=== PATIENT | female | born 1950 | race Hispanic/Latino ===

== ENCOUNTER 2023-09-24 14:44 | Inpatient (IN) | payer OTHER ==
--- OUTSIDE RECORDS SUMMARY | 2023-09-24 14:49 | XMS REPORT | Continuity of Care Document ---
Author Name Unknown Address [address] [facility] [address] [place] [address] [facility] thconnect Address [address] [facility] [address] [place] [address] Care Team Providers Care Schedule Planning Manager Name Role Phone REGAN RODRIGUEZ Primary Care Physician Unavailab Nayana Luna Attending Clinician Unavailable Christine Singh Attending Clinician Unavailable DR REGAN RODRIGUEZ Attending Clinician Unavailable [phone] Attending Clinician Unavailable Malinda Dee RN Attending Clinician UnavailLety Hagan PA-C Attending Clinician [phone] Doctor Unassigned, [place] Attending Clinician U Magalis Ayala RN Attending Clinician [phone] EARLINE FRANK Attending Clinician Unavailable Lexx Patrick MD Attending Clinician [phone] Earline Frank MD Attending Clinician [phone] Sparkle Coleman MD Attending Clinician [phone] Johnathan Martínez MD Attending Clinician [phone] Mitchel_A_AH Attending Clinician Unavailable DR REGAN RODRIGUEZ Admitting Clinician Unavailable SPARKLE COLEMAN Admitting Clinician Unavailable Sparkle Coleman MD Admitting Clinician [phone] Mitchel_A_SHAARD Admitting Clinician Unavailable Payers Payer Name Policy Type Policy Number Effective Date Expirati on Date Source [employer] MANAGED MEDICARE - OP [id number] [employer] [place] (MEDICARE REPLACEMENT/ADVANT AGE - HMO) [id number] 2019 00:00:00 Problems Condition Name Condition Details Condition Category Status Onset Date Resolution Date Last Treatment Date Treating Clinician Comments Source At risk for stroke At risk for stroke Disease Active 10-02 00:00: 00 [facility] AMS (altered mental status) AMS (altered mental status) Disease Active 10-02 00:00: 00 [facility] Aphasia Aphasia Disease Active 10-02 00:00: 00 [facility] Acute ischemic left middle cerebral artery (MCA) stroke Acute ischemic left middle cerebral artery (MCA) stroke Disease Active 10-02 00:00: 00 Overview: Formattin g of this note might be different from the original. 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 Disease Active 11-18 00:00: 00 [facility] Internal carotid artery stenosis, bilateral Internal carotid artery stenosis, bilateral Disease Active 11-18 00:00: 00 [facility] 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 Disease Active 11-18 00:00: 00 [facility] Acute ischemic right MCA stroke Acute ischemic right MCA stroke Disease Active 11-15 00:00: 00 [facility] Fatigue, unspecifie d type Fatigue, unspecifie d type Problem Active [facility] Acquired hypothyroi dism Acquired hypothyroi dism Problem Active [facility] Abnormal thyroid function test Abnormal thyroid function test Problem Active [facility] Frequent falls Frequent falls Problem Active [facility] Hemiparesi s of right dominant side, unspecifie d hemiparesi s etiology Hemiparesi s of right dominant side, unspecifie d hemiparesi s etiology Problem Active [facility] Right hip pain Right hip pain Problem Active [facility] Type 2 diabetes mellitus with hyperglyce alexsandra Type 2 diabetes mellitus with hyperglyce alexsandra Problem Active [facility] Seizures Seizures Problem Active [facility] 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 of 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 Problem Active [facility] Abdominal pain Abdominal pain Problem Active [facility] Insomnia Insomnia Problem Active [facility] Depression , unspecifie d depression type Depression , unspecifie d depression type Problem Active [facility] Essential hypertensi on Essential hypertensi on Problem Active [facility] Asthma, unspecifie d asthma severity, unspecifie d whether complicate d, unspecifie d whether persistent Asthma, unspecifie d asthma severity, unspecifie d whether complicate d, unspecifie d whether persistent Problem Active [facility] History of CVA (cerebrova scular accident) History of CVA (cerebrova scular accident) Problem Active [facility] Hyperlipid emia, unspecifie d hyperlipid emia type Hyperlipid emia, unspecifie d hyperlipid emia type Problem Active [facility] Microalbum inuria Microalbum inuria Problem Active [facility] Atheroscle rosis of right carotid artery Atheroscle rosis of right carotid artery Problem Active [facility] Hemiparesi s affecting left side as late effect of cerebrovas cular accident Hemiparesi s affecting left side as late effect of cerebrovas cular accident Problem Active [facility] Stress Stress Problem Active [facility] Dysphagia, unspecifie d type Dysphagia, unspecifie d type Problem Active [facility] Low back pain Low back pain Problem Active [facility] Left hip pain Left hip pain Problem Active [facility] Spasmodic cough Spasmodic cough Problem Active [facility] Status post fall Status post fall Problem Active [facility] Other chronic pain Other chronic pain Problem Active [facility] Hypoalbumi nemia Hypoalbumi nemia Problem Active [facility] Dizziness Dizziness Problem Active [facility] Allergies, Adverse Reactions, Alerts Allergy Name Allergy Type Status Severity Reaction(s) Onset Date Inactive Date Treating Clinician Comments Source NO KNOWN ALLERGIE S Drug Class Active [facility] Aspirin Adverse Reaction Active Info Not Available [facility] Social History Social Habit Start Date Stop Date Quantity Comments Source Exposure to SARS-CoV-2 (event) Not sure [facility] Sex Assigned At 1950 00:00:00 1950 00:00:00 [facility] Smoking Status Start Date Stop Date Source Unknown if ever smoked [facility] Medications Ordered Medication Name Filled Medication Name Start Date Stop Date Current Medication? Ordering Clinician Indication Dosage Frequency Signature (SIG) Comments Components Source ergocalcife rol, vitamin d2, 1,250 mcg (50,000 unit) capsule 10-11 00:00: 00 Yes [id number] Take 1 capsule by mouth weekly. [facility] polyethylen e glycol 3350 powder 17 g 10-06 01:00: 00 Yes 17g 17 g, Oral, BID, First dose on Thu10/05/20 at 2000, Until Discontinu ed, Routine [facility] metFORMIN 500 mg tablet 10-05 22:02: 23 Yes 500mg Take 500 mg by mouth 2 (two) times daily with meals. [facility] FLUoxetine 20 mg capsule 10-05 22:02: 23 Yes 20mg Take 20 mg by mouth daily. [facility] fluticasone -salmeterol (ADVAIR DISKUS) 250-50 mcg/dose inhalation disk 10-05 22:02: 23 Yes 1{puff} Inhale 1 Puff daily. [facility] ity [facility] ALBUTEROL INHALE 10-05 19:46: 41 10-05 00:00 :00 No Inhale. [facility] ity [facility] midodrine (PROAMATINE ) tablet 2.5 mg 10-05 19:00: 00 10-22 18:59 :00 No 2.5mg 2.5 mg, Oral, Q8H, 51 doses, First dose (after last modificati on) on Thu10/05/20 at 1400, Last dose on Thu10/22/20 at 0600, Routine [facility] metFORMIN 500 mg tablet 10-05 17:02: 23 Yes 500mg Take 500 mg by mouth 2 (two) times daily with meals. [facility] FLUoxetine 20 mg capsule 10-05 17:02: 23 Yes 20mg Take 20 mg by mouth daily. [facility] fluticasone -salmeterol (ADVAIR DISKUS) 250-50 mcg/dose inhalation disk 10-05 17:02: 23 Yes 1{puff} Inhale 1 Puff daily. [facility] lactated ringers IV infusion 1,000 mL 10-05 14:15: 00 Yes 1000mL at 75 mL/hr, 1,000 mL, IV Infusion, CONTINUOUS , Starting Thu10/05/20 at 0915, Until Discontinu ed, Routine [facility] famotidine (PEPCID AC) tablet 20 mg 10-05 14:00: 00 Yes 20mg 20 mg, Oral, BID, First dose on Thu10/05/20 at 0900, Until Discontinu ed, Routine [facility] sennosides (SENOKOT) tablet 8.6 mg 10-05 14:00: 00 Yes 8.6mg 8.6 mg, Oral, DAILY, First dose on Thu10/05/20 at 0900, Until Discontinu ed, Routine [facility] insulin detemir U-100 (LEVEMIR U-100 INSULIN) injection 15 Units 10-05 01:00: 00 Yes 15U 15 Units, Subcutaneo us, BID, First dose (after last modificati on) on Thu10/04/20 at 2000, Until Discontinu ed, Routine
Restricte d - To be dispensed only to: Continuati on from home [facility] insulin detemir U-100 100 unit/mL injection 10-05 00:00: 00 Yes [id number] 15U inject 15 Units under the skin 2 (two) times daily. [facility] prasugreL 10 mg tablet 10-05 00:00: 00 10-05 00:00 :00 No [id number] 10mg Take 1 tablet by mouth daily. [facility] Sliding Scale Insulin - Lispro (HumaLOG) + Fsbg Testing 10-04 22:00: 00 Yes Subcutaneo us, TID MEALS+HS, First dose on Thu10/04/20 at 1700, Until Discontinu ed, Routine [facility] psyllium (METAMUCIL FIBER SINGLES) 3.4 gram packet 1 Packet 10-04 18:15: 00 Yes 1{packe t} 1 Packet, Oral, DAILY, First dose on Thu10/04/20 at 1315, Until Discontinu ed, Routine [facility] sennosides- docusate sodium (SENOKOT-S) 8.6-50 mg per tablet 1 tablet 10-04 18:15: 00 10-05 13:47 :58 No 1{tbl} 1 tablet, Oral, DAILY, First dose on Thu10/04/20 at 1315, Until Discontinu ed, Routine [facility] ergocalcife [facility]l (vitamin d2) (CALCIFEROL ) capsule 50,000 Units 10-04 14:00: 00 Yes [id number] 50,000 Units, Oral, QWEEKLY, First dose on Thu10/04/20 at 0900, Until Discontinu ed, Routine [facility] heparin (porcine) injection 5,000 Units 10-04 13:00: 00 Yes 5000U 5,000 Units, Subcutaneo us, Q12H, First dose on Thu10/04/20 at 0800, Until Discontinu ed, Routine [facility] midodrine (PROAMATINE ) tablet 2.5 mg 10-04 11:45: 00 10-05 13:03 :59 No 2.5mg 2.5 mg, Oral, Q6H, 56 doses, First dose on Thu10/04/20 at 0645, Last dose on Thu10/18/20 at 0000, Routine [facility] QUEtiapine (SEROQUEL) tablet 25 mg 10-04 02:00: 00 Yes 25mg 25 mg, Oral, QHS, First dose on Thu10/03/20 at 2100, Until Discontinu ed, Routine [facility] levETIRAcet am (KEPPRA) tablet 750 mg 10-03 14:15: 00 Yes 750mg 750 mg, Oral, BID, First dose on Thu10/03/20 at 0915, Until Discontinu ed, Routine [facility] insulin detemir U-100 (LEVEMIR U-100 INSULIN) injection 12 Units 10-03 14:15: 00 10-04 19:24 :28 No 12U 12 Units, Subcutaneo us, BID, First dose (after last modificati on) on Thu10/03/20 at 0915, Until Discontinu ed, Routine
Restricte d - To be dispensed only to: Continuati on from home [facility] phenylephri ne 10 mg in NaCl 0.9% (NS) 250 mL infusion RTU 10-03 14:00: 37 10-04 11:36 :04 No .5ug/kg /min 0.5-6 mcg/kg/min ?56.4 kg (42.3-507. 6 mL/hr), IV Infusion, TITRATE, SBP goal 100-160, Starting Thu10/03/20 at 0900
In itiate infusion at 0.5 mcg/kg/min . &nb sp;Increas e by 0.1 mcg/kg/min every 30 seconds to 5 minutes as needed to reach and maintain goal blood pressure.& nbsp;&nbsp ;Maximum dose = 6 mcg/kg/min . &nb sp;If goal not maintained at maximum allowed dose, contact prescriber .
[facility] lidocaine (LIDODERM) 5 % (700 mg/patch) patch 1 Patch 10-03 14:00: 00 Yes 1{patch } 1 Patch, Topical, Administer over 12 Hours, DAILY, First dose on Thu10/03/20 at 0900, Until Discontinu ed, Routine [facility] aspirin chewable tablet 81 mg 10-03 14:00: 00 Yes 81mg 81 mg, Oral, DAILY, First dose on Thu10/03/20 at 0900, Until Discontinu ed, Routine [facility] levothyroxi ne (SYNTHROID) 25 mcg/ml oral suspension 50 mcg 10-03 11:00: 00 Yes 50ug 50 mcg, Oral, QAM-0600, First dose on Thu10/03/20 at 0600, Until Discontinu ed, Routine [facility] remdesivir 100 mg in NaCl 0.9% (NS) 250 mL infusion 10-03 05:00: 00 10-07 20:59 :00 No 100mg 100 mg, IV Infusion, DAILY AT 1600, 4 doses, First dose on Thu10/03/20 at 1600, Last dose on Thu10/06/20 at 1600, 250 mL
Gita ent informed [facility] for purposes of emergency use of remdesivir . No
Hi ordonez discuss and complete the [facility] Informat[facility] n Retention Consent form with the patient: I will discuss and complete the [facility] Retention Consent form with the patient [facility] levETIRAcet am (KEPPRA) 750 mg in NaCl 0.9% (NS) 100 mL IV infusion 10-03 03:15: 00 10-03 14:00 :16 No 750mg 750 mg, IV Infusion, Q12H, First dose on Thu10/02/20 at 2215, Until Discontinu ed, 100 mL [facility] insulin detemir U-100 (LEVEMIR U-100 INSULIN) injection 8 Units 10-03 01:00: 00 10-03 14:03 :11 No 8U 8 Units, Subcutaneo us, BID, First dose (after last modificati on) on Thu10/02/20 at 2000, Until Discontinu ed, Routine
Restricte d - To be dispensed only to: Continuati on from home [facility] dexamethaso ne (DECADRON PHOSPHATE) 6 mg in NaCl 0.9% (NS) 50 mL piggyback 10-02 23:15: 00 10-05 11:48 :33 No 6mg 6 mg, IV Piggyback, Q24H, 5 doses, First dose on Thu10/02/20 at 1815, Last dose on Thu10/06/20 at 1815, 50 mL [facility] cefTRIAXone (ROCEPHIN) 1,000 mg in NaCl 0.9% (NS) 50 mL MINI-BAG 10-02 21:34: 00 10-04 17:09 :35 No 1000mg 1,000 mg, IV Piggyback, Q24H ABX, First dose (after last modificati on) on Thu10/02/20 at 1645, Until Discontinu ed, 50 mL
Reas on for Anti-Infec tive: Documented Infection< br>Documen jun Infection Site: Urine
D uration of Therapy: Other (see Comments) [facility] sulfur hexafluorid e microsphr (LUMASON) injection 3 mL 10-02 21:00: 00 10-02 21:00 :00 No [id number] 3mL 3 mL, Intravenou s, ONCE, 1 dose, Thu10/02/20 at 1600, Routine
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 Restricted medication : JOHNNY MAE [facility] Saline Bubble Study 10-02 20:56: 29 Yes [id number] 6mL 6 mL, Injection, SEE-INSTRU CTIONS, 2 doses, Starting Thu10/02/20 at 1556, Until Discontinu ed, Routine [facility] FENTanyl PF (SUBLIMAZE (PF)) injection 6.25 mcg 10-02 20:11: 24 10-05 18:44 :58 No 6.25ug 6.25 mcg, Slow IV Push, Q6HPRN, Starting Thu10/02/20 at 1511, Until Thu10/05/20 at 1344, Routine, Pain (scale 7-10) [facility] magnesium sulfate in water 4 gram/50 mL (8 %) IV Piggyback 4 g 10-02 17:45: 00 10-02 17:04 :00 No 4g 4 g, IV Piggyback, ONCE, 1 dose, Thu10/02/20 at 1245, Routine [facility] phenylephri ne 10 mg in NaCl 0.9% (NS) 250 mL infusion RTU 10-02 17:39: 10 10-03 14:01 :40 No .5ug/kg /min 0.5-6 mcg/kg/min ?56.4 kg (42.3-507. 6 mL/hr), IV Infusion, TITRATE, SBP goal 130-180, Starting Thu10/02/20 at 1239
In itiate infusion at 0.5 mcg/kg/min . &nb sp;Increas e by 0.1 mcg/kg/min every 30 seconds to 5 minutes as needed to reach and maintain goal blood pressure.& nbsp;&nbsp ;Maximum dose = 6 mcg/kg/min . &nb sp;If goal not maintained at maximum allowed dose, contact prescriber .
[facility] acetaminoph en (TYLENOL) tablet 500 mg 10-02 17:00: 00 Yes 500mg 500 mg, Oral, Q6H, First dose (after last modificati on) on Thu10/02/20 at 1200, Until Discontinu ed, Routine [facility] Sliding Scale Insulin - Lispro (HumaLOG) + Fsbg Testing 10-02 17:00: 00 10-04 19:23 :52 No Subcutaneo us, TID MEALS+HS, First dose (after last modificati on) on Thu10/02/20 at 1200, Until Discontinu ed, Routine [facility] NaCl 0.9% (NS) bolus infusion 250 mL 10-02 17:00: 00 10-02 16:10 :00 No 250mL at 250 mL/hr, 250 mL, IV Piggyback, ONCE, 1 dose, Thu10/02/20 at 1200, STAT [facility] lidocaine (LIDODERM) 5 % (700 mg/patch) patch 1 Patch 10-02 16:00: 00 10-03 04:02 :00 No 1{patch } 1 Patch, Topical, Administer over 12 Hours, ONCE, 1 dose, Thu10/02/20 at 1100, Routine [facility] FENTanyl PF (SUBLIMAZE (PF)) injection 12.5 mcg 10-02 15:00: 00 10-02 13:50 :00 No 12.5ug 12.5 mcg, Slow IV Push, ONCE, 1 dose, Thu10/02/20 at 1000, Routine [facility] FLUoxetine (PROZAC) capsule 20 mg 10-02 14:00: 00 Yes 20mg 20 mg, Oral, DAILY, First dose on Thu10/02/20 at 0900, Until Discontinu ed, Routine [facility] alteplase (ACTIVASE) injection 5.08 mg 10-02 13:30: 00 10-02 12:52 :00 No .09mg/k g 5.08 mg (rounded from 5.076 mg = 0.09 mg/kg ?56.4 kg), Intravenou s, ONCE, 1 dose, Thu10/02/20 at 0830, STAT
ST ZEPEDA Activation : IN ED DO NOT Automatica lly send
Fa culty member approving Restricted medication : SPARKLE COLEMAN [facility] NaCl 0.9% (NS) 50 mL infusion 10-02 13:15: 00 10-02 13:52 :00 No .81mL/k g/h at 45.68 mL/hr, IV Infusion, ONCE, 1 dose, Thu10/02/20 at 0815, Routine
Saeed the 50 mL NS bag with end of the alteplase infusion tubing when alteplase vial is empty. Continue the infusion at the same rate.
[facility] NaCl 0.9% (NS) 1000 mL + KCL 20 mEq 10-02 12:45: 00 10-05 13:01 :14 No IV Infusion, at 75 mL/hr, CONTINUOUS , Starting Thu10/02/20 at 0745, Until Thu10/05/20 at 0801, Routine [facility] alteplase (ACTIVASE) injection 45.68 mg 10-02 12:30: 00 10-02 13:35 :00 No .81mg/k g 45.68 mg (rounded from 45.684 mg = 0.81 mg/kg ?56.4 kg), Intravenou s, ONCE, 1 dose, Thu10/02/20 at 0730, Routine
STROKE Activation : IN ED DO NOT Automatica lly send
Fa culty member approving Restricted medication : SPARKLE COLEMAN [facility] NaCl 0.9% (NS) injection 5 mL 10-02 12:17: 07 Yes 5mL 5 mL, Slow IV Push, PRN - SEE INSTRUCTIO NS, Starting Thu10/02/20 at 0717, Until Discontinu ed, 10 mL [facility] iopamidol (ISOVUE 370-500 mL) injection 100 mL 10-02 11:54: 00 10-02 11:55 :00 No [id number] 100mL 100 mL, Intravenou s, ONCE, 1 dose, Thu10/02/20 at 0715, Routine [facility] NaCl 0.9% (NS) injection 5 mL 10-02 11:11: 32 Yes 5mL 5 mL, Slow IV Push, PRN - SEE INSTRUCTIO NS, Starting Thu10/02/20 at 0611, Until Discontinu ed, 10 mL [facility] ipratropium (ATROVENT HFA) inhaler 2 Puff 10-02 05:00: 00 Yes 2{puff} 2 Puff, Inhalation , Q6H, First dose (after last modificati on) on Thu10/02/20 at 0000, Until Discontinu ed, Routine
Is this order for a patient with suspected or confirmed COVID-19 infection? Yes [facility] it[facility] albuterol (VENTOLIN) inhaler 2 Puff 10-02 05:00: 00 Yes 2{puff} 2 Puff, Inhalation , Q6H, First dose (after last modificati on) on Thu10/02/20 at 0000, Until Discontinu ed, Routine
Is this order for a patient with suspected or confirmed COVID-19 infection? Yes [facility] Sliding Scale Insulin - Lispro (HumaLOG) + Fsbg Testing 10-02 04:45: 00 10-02 15:51 :50 No Subcutaneo us, TID MEALS+HS, First dose on Thu10/01/20 at 2345, Until Discontinu ed, Routine [facility] atorvastati n (LIPITOR) tablet 40 mg 10-02 03:15: 00 Yes 40mg 40 mg, Oral, QPM, First dose (after last modificati on) on Thu10/01/20 at 2215, Until Discontinu ed, Routine [facility] levETIRAcet am (KEPPRA) tablet 750 mg 10-02 03:15: 00 10-03 03:05 :43 No 750mg 750 mg, Oral, BID, First dose (after last modificati on) on Thu10/01/20 at 2215, Until Discontinu ed, [facility]emir U-100 (LEVEMIR U-100 INSULIN) injection 12 Units 10-02 03:15: 00 10-02 14:06 :30 No 12U 12 Units, Subcutaneo us, BID, First dose (after last modificati on) on Thu10/01/20 at 2215, Until Discontinu ed, Routine
Restricte d - To be dispensed only to: Continuati on from home [facility] ipratropium (ATROVENT HFA) inhaler 2 Puff 10-02 01:23: 43 10-02 02:50 :20 No 2{puff} 2 Puff, Inhalation , Q6HPRN, Starting Thu10/01/20 at 2023, Until Thu10/01/20 at 2150, Routine, Shortness of Breath, Wheezing, Bronchospa sm, Chest tightness< br>Is this order for a patient with suspected or confirmed COVID-19 infection? Yes [facility] acetaminoph en (TYLENOL) tablet 650 mg 10-02 01:22: 47 10-02 13:50 :55 No 650mg 650 mg, Oral, Q6HPRN, Starting Thu10/01/20 at 2022, Until Thu10/02/20 at 0850, Routine, Pain (scale 1-3) [facility] cefTRIAXone (ROCEPHIN) 1,000 mg in NaCl 0.9% (NS) 50 mL MINI-BAG 10-01 22:30: 00 10-01 22:04 :00 No 1000mg 1,000 mg, IV Piggyback, ONCE, 1 dose, Thu10/01/20 at 1730, 50 mL
Reas on for Anti-Infec tive: Documented Infection< br>Documen jun Infection Site: Urine
D uration of Therapy: Other (see Comments) [facility] acetaminoph en (TYLENOL) tablet 975 mg 10-01 20:15: 00 10-01 19:39 :00 No 975mg 975 mg, Oral, ONCE, 1 dose, Thu10/01/20 at 1515, ELSIE [facility] Trulicity Trulicity 11-15 00:00: 00 03-15 00:00 :00 No Christine Millender as directed [facility] Magnesium Oxide Magnesium Oxide 09-11 00:00: 00 Yes Christine Millender 1 tablet as needed [facility] Glucose testing strips Glucose testing strips 310 00:00: 00 Yes Christine Millender as directed (dispense testing strips formulary to insurance) [facility] Lancets Lancets 08-15 00:00: 00 Yes Christine Millender as directed (dispense lancets formulary to insurance) [facility] Pen [place] Pen [place] 3 00:00: 00 Yes Christine Millender as directed [facility] Blood Glucose Monitor Blood Glucose Monitor 08-15 00:00: 00 Yes Christine Millender as directed (DISPENSE BLOOD GLUCOSE MONITOR FORMULARY TO INSURANCE) [facility] Nesina Nesina 02-02 00:00: 00 Yes Christine Millender 1 tablet [facility] ALPRAZolam 0.25 mg tablet 11-24 00:00: 00 Yes .25mg Take 1 tablet by mouth every 8 (eight) hours. [facility] levETIRAcet am 750 mg tablet 11-24 00:00: 00 Yes 750mg Take 1 tablet by mouth 2 (two) times daily. [facility] atorvastati n 40 mg tablet 11-24 00:00: 00 Yes 40mg Take 1 tablet by mouth every evening. [facility] QUEtiapine 25 mg tablet 11-24 00:00: 00 Yes 25mg Take 1 tablet by mouth 2 (two) times daily. [facility] insulin aspart RAPID 100 unit/mL injection 11-24 00:00: 00 Yes 8U inject 8 Units under the skin 3 (three) times daily with meals. [facility] aspirin 81 mg chewable tablet 11-24 00:00: 00 Yes 81mg Take 1 tablet by mouth daily. [facility] insulin detemir 100 unit/mL injection 11-24 00:00: 00 10-05 00:00 :00 No 12U inject 12 Units under the skin 2 (two) times daily. [facility] prasugrel 10 mg tablet 2017-0 6-19 00:00: 00 10-05 00:00 :00 No 10mg Take 1 tablet by mouth daily. [facility] acetaminoph en-codeine (TYLENOL #3) 300-30 mg tablet 2014- 2-18 00:00: 00 10-05 00:00 :00 No 2{tbl} Take 2 Tabs by mouth every 6 (six) hours as needed for Pain unrelieved by non-narcot ic analgesics . [facility] Atenolol Atenolol Yes Christine Millender 1 tablet [facility] Advair Diskus Advair Diskus Yes Christine Millender 1 puff [facility] Levemir FlexTouch Levemir FlexTouch Yes Christine Millender as directed [facility] Ventolin HFA Ventolin HFA Yes Christine Millender 2 puffs as needed for sob/wheezi ng [facility] Proventil HFA Proventil HFA Yes Christine Millender 2 puffs as needed [facility] Avivaia Janmya Yes Christine Millender 1 tablet for diabetes [facility] Atorvastati n Calcium Atorvastati n Calcium Yes Christine Millender 1 tablet in evening [facility] Plavix Plavix Yes Christine Millender 1 tablet [facility] GlyBURIDE GlyBURIDE Yes Christine Millender 1 tablet [facility] Levetiracet am Levetiracet am Yes Christine Millender 1 tablet [facility] Ketoconazol e Ketoconazol e Yes Christine Millender 1 applicatio n to affected area [facility] Metformin HCl Metformin HCl Yes Christine Millender 1 tablet with meals [facility] Fluoxetine HCl Fluoxetine HCl Yes Christine Millender 1 capsule in the morning [facility] Seroquel Seroquel Yes Christine Millender 1 tablet [facility] Janaldoia Janaldoia Yes Christine Millender 1 tablet for diabetes [facility] Levothyroxi ne Sodium Levothyroxi ne Sodium Yes Christine Millender 1 tablet on an empty stomach in the morning [facility] Vital Signs Vital Name Observation Time Observation Value Comments Elsa holm Systolic blood pressure 2020-10-05 20:52:00 156 mm[Hg] [facility] Diastolic blood pressure 2020-10-05 20:52:00 84 mm[Hg] [facility] Heart rate 2020-10-05 20:52:00 87 /min [facility] Body temperature 2020-10-05 20:52:00 35.33 Amber [facility] Respiratory rate 2020-10-05 20:52:00 20 /min [facility] Oxygen saturation in Arterial blood by Pulse oximetry 2020-10-05 20:52:00 97 /min [facility] Body weight 2020-10-02 04:53:00 56.427 kg [facility] BMI 2020-10-02 04:53:00 23.51 kg/m2 [facility] Body height 2020-10-02 01:30:00 154.9 cm [facility] Procedures Procedure Date / Time Performed Performing Clinician Source DNR 2020-10-23 05:01:00 Doctor Unassigned, [place] [facility] POCT GLUCOSE (AUTOMATED) 2020-10-05 16:39:00 [facility] POCT GLUCOSE (AUTOMATED) 2020-10-05 13:09:00 [facility] POCT GLUCOSE (AUTOMATED) 2020-10-05 02:37:00 [facility] MR STROKE BRAIN WO CONTRAST 2020-10-05 01:45:08 Myrna Craig [facility] POCT GLUCOSE (AUTOMATED) 2020-10-04 22:07:00 [facility] POCT GLUCOSE (AUTOMATED) 2020-10-04 17:20:00 [facility] POCT GLUCOSE (AUTOMATED) 2020-10-04 13:06:00 [facility] MAGNESIUM 2020-10-04 09:37:00 [facility] (NA, K , CL, CO2, GLUCOSE, BUN, CREATININE, CA) 2020-10-04 09:37:00 [facility] CBC WITHOUT DIFF 2020-10-04 09:37:00 [facility] POCT GLUCOSE (AUTOMATED) 2020-10-04 05:01:00 [facility] POCT GLUCOSE (AUTOMATED) 2020-10-04 01:37:00 [facility] ELECTROENCEPHALOGRAM 2020-10-04 00:00:00 Anders Harding [facility] VITAMIN D, 25-OH 2020-10-03 21:27:00 Chery [facility] POCT GLUCOSE (AUTOMATED) 2020-10-03 21:08:00 [facility] POCT GLUCOSE (AUTOMATED) 2020-10-03 16:54:00 [facility] POCT GLUCOSE (AUTOMATED) 2020-10-03 14:27:00 [facility] MAGNESIUM 2020-10-03 08:10:00 [facility] TROPONIN I 2020-10-03 08:10:00 Chery [facility] BASIC METABOLIC PANEL (NA, K , CL, CO2, GLUCOSE, BUN, CREATININE, CA) 2020-10-03 08:10:00 [facility] CBC WITH DIFF 2020-10-03 08:10:00 [facility] POCT GLUCOSE (AUTOMATED) 2020-10-03 02:29:00 [facility] TROPONIN I 2020-10-02 23:01:00 Chery [facility] THYROID STIMULATING HORMONE 2020-10-02 23:01:00 Linh Noel [facility] POCT GLUCOSE (AUTOMATED) 2020-10-02 21:50:00 [facility] TRANSTHORACIC ECHO (TTE) COMPLETE W/ CONTRAST 2020-10-02 20:45:00 Myrna Craig [facility] XR CHEST 1 VW 2020-10-02 17:26:59 Chery [facility] POCT GLUCOSE (AUTOMATED) 2020-10-02 17:07:00 [facility] CT HEAD WO CONTRAST 2020-10-02 16:35:55 Chery [facility] MRSA / MSSA SCREEN BY GOKUL ESPINOZA 2020-10-02 14:04:00 Myrna Craig [facility] MAGNESIUM 2020-10-02 14:03:00 Chery [facility] TROPONIN I 2020-10-02 14:03:00 Chery [facility] HB ECG ROUTINE & RHYTHM STRIP 2020-10-02 13:41:56 Bert [facility] POCT GLUCOSE (AUTOMATED) 2020-10-02 13:10:00 [facility] TROPONIN I 2020-10-02 12:50:00 Bert [facility] BASIC METABOLIC PANEL (NA, K , CL, CO2, GLUCOSE, BUN, CREATININE, CA) 2020-10-02 12:50:00 Bert [facility] CBC WITHOUT DIFF 2020-10-02 12:49:00 Matthew [facility] PROTHROMBIN TIME / INR 2020-10-02 12:49:00 Bert [facility] ACTIVATED PARTIAL THRMPLAS DYLAN 2020-10-02 12:49:00 Bert [facility] CT STROKE ANGIOGRAM HEAD 2020-10-02 12:15:27 Bert [facility] [address] STROKE ANGIOGRAM NECK 2020-10-02 12:15:27 Bert [facility] CT STROKE HEAD WO CONTRAST 2020-10-02 12:07:32 Bert [facility] POCT GLUCOSE (AUTOMATED) 2020-10-02 11:26:00 Earline Frank [facility] BASIC METABOLIC PANEL (NA, K , CL, CO2, GLUCOSE, BUN, CREATININE, CA) 2020-10-02 10:37:00 Makayla Faust [facility] LIPID PANEL (19481)(TOTAL CHOLESTEROL, TRIGLYCERIDES, HDL) 2020-10-02 10:37:00 Myrna Craig [facility] CBC WITH DIFF 2020-10-02 10:37:00 [facility] 2020-10-02 05:25:00 [facility] 2020-10-02 03:45:00 Monika [facility] LACTATE DEHYDROGENASE 2020-10-02 02:24:00 [facility] FERRITIN SERUM 2020-10-02 02:24:00 [facility] C-REACTIVE PROTEIN 2020-10-02 02:24:00 [facility] FREE T4 2020-10-02 02:24:00 Bert [facility] D-DIMER 2020-10-02 02:24:00 [facility] FREE T3 2020-10-02 02:24:00 Bert [facility] PROCALCITONIN 2020-10-02 02:24:00 [facility] XR HUMERUS 2 VW LEFT 2020-10-01 20:29:50 [facility] URINALYSIS 2020-10-01 19:42:00 [facility] 2020-10-01 19:42:00 [facility] CHEST 1 VW 2020-10-01 19:17:31 [facility] XR RIBS 3 VW LEFT 2020-10-01 19:16:14 [facility]LOOD [facility]EN 2020-10-01 19:00:00 Lexx Patrick [facility] LIPASE 2020-10-01 19:00:00 Lexx Patrick [facility] TROPONIN I 2020-10-01 19:00:00 Lexx Patrick [facility] HEPATIC FUNCTION PANEL (72416) (ALB,T.PRO,BILI T,BU/BC,ALT,AST,ALK PHOS) 2020-10-01 19:00:00 Lexx Patrick [facility] BASIC METABOLIC PANEL (NA, K , CL, CO2, GLUCOSE, BUN, CREATININE, CA) 2020-10-01 19:00:00 Lexx Patrick [facility] CBC WITH DIFF 2020-10-01 19:00:00 [facility] GLYCOSYLATED HEMOGLOBIN (A1C) 2020-10-01 19:00:00 Makayla Faust [facility] PROTHROMBIN TIME / INR 2020-10-01 19:00:00 Lexx Patrick [facility] ACTIVATED PARTIAL THRMPLAS DYLAN 2020-10-01 19:00:00 [facility] COVID-19 (ID NOW RAPID TESTING) 2020-10-01 19:00:00 Lexx Patrick [facility] LACTIC ACID WHOLE BLOOD 2020-10-01 18:59:00 Lexx Patrick [facility] HB ECG ROUTINE & RHYTHM STRIP 2020-10-01 18:01:29 Lexx Patrick [facility] NOTICE OF PRIVACY PRACTICES 2020-10-01 17:38:56 Doctor Unassigned, [place] [facility] EMERGENCY DEPARTMENT DOCUMENTS 2020-09-09 05:01:00 Doctor Unassigned, [place] [facility] Encounters Start Date/Time End Date/Time Encounter Type Admission Type Attending Clinicians Care Facility Care Department Encounter ID Source 2022-01-16 10:27:22 Outpatient [facility] [id number] [facility] 2021-07-03 13:34:03 Outpatient Nayana Santiago [facility] [id number] [facility] 2021-07-03 13:09:59 Outpatient Nayana Santiago [facility] [id number] [facility] 2021-07-03 11:25:55 Outpatient Christine Singh [facility] [id number] [facility] 2021-07-03 11:13:01 Outpatient Christine Singh [facility] [id number] [facility] 2021-07-03 11:12:24 Outpatient Christine Singh [facility] [id number] [facility] 2022-01-16 10:37:00 2022-01-16 10:38:00 Outpatient Chris REGAN RODRIGUEZ [id number] [facility] [id number] [facility] 2021-02-13 00:00:00 2021-02-13 00:00:00 Telephone Malinda Dee [facility] [id number] [facility] 2021-01-23 00:00:00 2021-01-23 00:00:00 Telephone Lety Flowers [facility] [id number] [facility] 2020-10-23 00:00:00 2020-10-23 00:00:00 Orders Only Doctor Unassigned, [place] [facility] [id number] [facility] 2020-10-08 00:00:00 2020-10-08 00:00:00 Transition of Care Magalis Lara [id number] [facility] 2020-10-01 12:56:00 2020-10-05 17:02:00 Inpatient X JONH FRANKAH [facility] [id number] [facility] 2020-10-01 12:56:2020-10-05 17:02:00 Hospital Encounter Darnell Lexxjean Frank, Earline Coleman, Sparkle Martínez, Premal G Velma [facility] [id number] [facility] 2020-09-09 00:00:00 2020-09-09 00:00:00 Orders Only Doctor Unassigned, [place] [facility] [id number] [facility] 2019-11-21 01:47:00 2019-11-21 01:47:00 [facility] [id number] [facility] 2019-11-16 13:40:00 2019-11-16 13:40:00 Outpatient [facility] [id number] [facility] 2019-09-11 20:59:00 2019-09-11 20:59:00 Outpatient [facility] [id number] [facility] 2019-08-16 13:00:00 2019-08-16 13:00:00 Outpatient [facility] [id number] [facility] 2019-07-27 07:13:00 2019-07-27 07:13:00 Outpatient Denae-Mbayo _A_AH [facility] [id number] [facility] 2019-05-12 14:40:00 2019-05-12 14:40:00 Outpatient [facility] [id number] [facility] 2019-02-21 14:02:00 2019-02-21 14:02:00 Outpatient [facility] [id number] [facility] 2019-02-01 15:30:00 2019-02-01 15:30:[address] [facility] [id number] [facility] 2019-01-27 11:00:00 2019-01-27 11:00:00 [facility] [id number] [facility] 2018-11-17 15:41:00 2018-11-17 15:41:00 [facility] [id number] [facility] 2018-10-21 13:20:00 2018-10-21 13:20:00 [facility] [id number] [facility] 2018-08-20 10:30:00 2018-08-20 10:30:00 [facility] [place] [facility] [id number] [facility] 2018-06-30 15:45:00 2018-06-30 15:45:00 [facility] [place] [facility] [id number] [facility] 2018-06-19 02:57:00 2018-06-19 02:57:00 [facility] [place] [facility] [id number] [facility] 2018-05-28 10:30:00 2018-05-28 10:30:00 [facility] [place] [facility] [id number] [facility] 2018-02-26 11:15:00 2018-02-26 11:15:00 [facility] [place] [facility] [id number] [facility] 2017-11-26 20:38:00 2017-11-26 20:38:00 [facility] [place] [facility] [id number] [facility] 2017-11-26 20:27:00 2017-11-26 20:27:00 [facility] [place] [facility] [id number] [facility] 2017-11-26 09:30:00 2017-11-26 09:30:00 Outpatient [facility] [id number] [facility] 2017-09-08 14:30:00 2017-09-08 14:30:00 Outpatient [facility] [id number] [facility] 2017-08-26 13:00:00 2017-08-26 13:00:00 Outpatient [facility] [id number] [facility] Results Test Description Test Time Test Comments Results Result Co mments Source [facility] 13:13:11* Test Item Value Reference Range Interpretation Comme nts POCT GLU (test code = 8526031633) 365 mg/dL 70-110 H Lab Interpretation (test cod e = 74279-5) [facility] [id number] 02:41:01 No acute intracranial abnormality. Chronic left [employer]ENIOR BOOKKEEPER territory infarct. Chronic lacunar infarcts in the ponsand right lateral thalami.EXAM: MR STROKE BRAIN WO CONTRAST HISTORY: Transient ischemic attack (TIA) TECHNIQUE: Brain MRI was performed on a 3 Miladys without intravenouscontrast. Sagittal and coronal reformats were generated. COMPARISON: None. FINDINGS: Large area of encephalomalacia with surrounding gliosis in the lefttemporo-occipital lobe likely represents sequela of chronic SENIOR BOOKKEEPER territoryinfarct. Chronic lacunar infarcts are noted in the chaitanya and bilateral thalami. The ventricles and sulci are prominent suggestive of mild degree of globalcerebral volume loss. No hydrocephalus, midline shift or pathologicalextra-axial fluid collection. Basal cisterns are unremarkable. Patchy periventricular and deep white matter T2/FLAIR hyperintensities,nonspecific likely represent microvascular ischemic changes. The T2 signal void of intracranial vessels is unremarkable. No abnormal signal in the paranasal sinuses or mastoid air cells. [facility], [facility]iant Results Inft User - 10/04/2020 9:42 PM CDTEXAM: MR STROKE BRAIN WO CONTRASTHISTORY: Transient ischemic attack (TIA) TECHNIQUE: Brain MRI was performed on a 3 Miladys without intravenouscontrast. Sagittal and coronal reformats were generated.COMPARISON: None.FINDINGS: Large area of encephalomalacia with surrounding gliosis in the lefttemporo-occipital lobe likely represents sequela of chronic SENIOR BOOKKEEPER territoryinfarct.Chronic lacunar infarcts arenoted in the chaitanya and bilateral thalami.The ventricles and sulci are prominent suggestive of mild degree of globalcerebral volume loss. No hydrocephalus, midline shift or pathologicalextra-axial fluid collection. Basal cisterns are unremarkable.Patchy periventricular and deep white matter T2/FLAIR hyperintensities,nonspecific likely represent microvascular ischemic changes.The T2 signal void of in tracranial vessels is unremarkable.No abnormal signal in the paranasal sinuses or mastoid air cells.IMPRESSIONNo acute intracranial abnormality.Chronic left SENIOR BOOKKEEPER territory infarct. Chronic lacunar infarcts in the ponsand right lateral thalami.[facility] GLUCOSE (AUTOMATED)2020-10-05 02:39:03* Test Item Value Reference Range Interpretation Comme nts POCT GLU (test code = 1455008303) 218 mg/dL 70-110 H Lab Interpretation (test cod e = 12090-6) Abnormal [facility] GLUCOSE (AUTOMATED)2020-10-04 22:08:36* Test Item Value Reference Range Interpretation Comme nts POCT GLU (test code = 0128925416) 235 mg/dL 70-110 H Lab Interpretation (test cod e = 66368-9) Abnormal [facility] GLUCOSE (AUTOMATED)2020-10-04 17:33:56* Test Item Value Reference Range Interpretation Comme nts POCT GLU (test code = 5370205884) 258 mg/dL 70-110 H Lab Interpretation (test cod e = 95481-9) [facility] 14:33:28* Test Item Value Reference Range Interpretation Comme nts MAGNESIUM (test code = 7118945941) 1.8 mg/dL 1.7-2.4 Lab Interpretation (test cod e = 35579-2) Normal [facility] GLUCOSE (AUTOMATED)2020-10-04 13:21:18* Test Item Value Reference Range Interpretation Comme nts POCT GLU (test code = 6691683776) 192 mg/dL 70-110 H Lab Interpretation (test cod e = 17201-6) Abnormal [facility] METABOLIC PANEL (NA, K, CL, CO2, GLUCOSE, BUN, CREATININE, CA)2020-10-04 10:23:39* Test Item Value Reference Range Interpretation Comme nts NA (test code = 8529684310) 135 mmol/L 135-145 K (test code = 5303309218) 4.2 mmol/L 3.5-5.0 CL (test code = 0577970931) 103 mmol/L 98-108 CO2 TOTAL (test code = 2477569556) 25 mmol/L 23-31 AGAP (test code = 9911161811) 2-16 BUN (test code = 4946841855) 17 mg/dL 7-23 GLUCOSE (test code = 4523428745) 185 mg/dL 70-110 H CREATININE (test code = 3649786252) 0.43 mg/dL 0.50-1.04 L CALCIUM (test code = 7056439123) 7.8 mg/dL 8.6-10.6 L eGFR (test code = 0086444860) mL/min/1.73m2 LEYDI (test code = LEYDI) Association of Glomerular Filtration Rate (GFR) and Staging of Kidney Disease* + --+ --+ ------+| GFR (mL/min/1.73 m2) ?| With Kidney Damage ?| ?Without Kidney Damage+ --------+ --------+ +| ?>90 ?| ?Stage one ?| ? Normal ?+ ---+ ---+ -------+| ?60-89 ?| ?Stage two ?| ? Decreased GFR ? + --+ --+ ------+| ?30-59 ?| ?Stage three ?| ? Stage three ? + --+ --+ ------+| ?15-29 ?| ?Stage four ? | ? Stage four ?+ ---+ ---+ -------+| ?<15 (or dialysis) ? ?| ?Stage five ? | ? Stage five ?+ ---+ ---+ -------+ *Each stage assumes the associated GFR level has been in effect for at least three months. ?Stages 1 to 5, with or without kidney disease, indicate chronic kidney disease. Notes: Determination of stages one and two (with eGFR >59mL/min/1.73 m2) requires estimation of kidney damage for at least three months as defined by structural or functional abnormalities of the kidney, manifested by either:Pathological abnormalities or Markers of kidney damage (including abnormalities in the composition of the blood or urine or abnormalities in imaging tests). Lab Interpretation (test code = 62781-7) Abnormal [facility] WITHOUT [id number] 10:01:19* Test Item Value Reference Range Interpretation Comme nts WBC (test code = 6690-2) See_Comment [Automated message] The system which generated this result transmitted reference range: 4.30 - 11.10 10*3/?L. The reference range was not used to interpret this result as normal/abnormal. RBC (test code = 789-8) See_Comment L [Automated message] The system which generated this result transmitted reference range: 3.93 - 5.25 10*6/?L. The reference range was not used to interpret this result as normal/abnormal. HGB (test code = 718-7) 10.7 g/dL 11.6-15.0 L HCT (test code = 4544-3) 32.0 % 35.7-45.2 L MCH (test code = 785-6) 29.6 pg 25.9-32.8 MCV (test code = 787-2) 88.4 fL 80.6-95.5 MCHC (test code = 786-4) 33.4 g/dL 31.6-35.1 PLT (test code = 777-3) See_Comment [Automated message] The system which generated this result transmitted reference range: 166 - 358 10*3/?L. The reference range was not used to interpret this result as normal/abnormal. MPV (test code = 01217-6) 11.1 fL 9.5-12.9 RDW-CV (test code = 788-0) 13.6 % 12.0-15.5 RDW-SD (test code = 88694-2) 43.8 fL 39.0-49.9 NRBC x10^3 (test code = 9231337209) <0.01 See_Comment [Automated messa ge] The system which generated this result transmitted reference range: 10*3/?L. The reference range was not used to interpret this result as normal/abnormal. NRBC/100 WBC (test code = 7667480835) See_Comment [Automated messa ge] The system which generated this result transmitted reference range: 0.0 - 10.0 /100 WBCs. The reference range was not used to interpret this result as normal/abnormal. IPF % (test code = 7393047145) Lab Interpretation (test code = 05424-3) Abnormal [facility] GLUCOSE (AUTOMATED)2020-10-04 05:12:49* Test Item Value Reference Range Interpretation Comme nts POCT GLU (test code = 2348762693) 273 mg/dL 70-110 H Lab Interpretation (test cod e = 41363-5) Abnormal [facility] GLUCOSE (AUTOMATED)2020-10-04 01:48:49* Test Item Value Reference Range Interpretation Comme [facility] POCT GLU (test code = 3138178445) 320 mg/dL 70-110 H Lab Interpretation (test cod e = 07022-8) [facility] Center[facility] - Duration of test: 20-60 mins; Release to patient: [id number] 00:00:00Date and Time of Procedure: 10/04/2020, 11:36:37 to 12:11:05 REPORT TECHNICAL SUMMARY: The EEG was recorded digitally. Electrodes were applied using the International 10/20 System of electrode placement. Eye movements, respiratory excursions and rhythm strip ECG were monitored on separate channels of the ongoing EEG recording. The occipital dominant rhythm consists of moderate amplitude 8-8.5 Hz activity. More anteriorly, similar as well as faster frequencies are present, including low -18 Hz activities in the anterior leads. There is an excessive amount of 4-8 Hz activity diffusely. Drowsiness does not reveal additional abnormalities. Sleep is not seen. IMPRESSION: This EEG is abnormal due to mild diffuse slowing, suggestive of a mild diffuse disturbance in cerebral function. No electrographic seizures or epileptiform abnormalities are seen. The absence of epileptiform abnormalities in one EEG does not necessarily rule out a diagnosis of epilepsy or the potential for epileptic seizures, however. The diagnostic sensitivity can be enhanced by a repeat study, which would be appropriate if clinically indicated. The fact that sleep is not seen may decrease the diagnostic sensitivity of the test, as some EEG abnormalities are more commonly seen in sleep. Sleep deprivation before an EEG can sometimes ensure sleep before the EEG, and may therefore be beneficial if indicated. Catracho Martínez MD Date of interpretation: 10/04/2020Un[facility], 25-OH 2020-10-03 23:42:48* Test Item Value Reference Range Interpretation Comme nts VIT D 25OH (test code = 21425-3) 13 ng/mL 25-80 L LEYDI (test code = LEYDI) Deficiency: <20 ng/mLInsufficiency: 20-24 ng/mLOptimal: 25-80 ng/mL Lab Interpretation (test code = 77426-0) Abnormal [facility] GLUCOSE (AUTOMATED)2020-10-03 21:09:34* Test Item Value Reference Range Interpretation Comme nts POCT GLU (test code = 4620027722) 234 mg/dL 70-110 H Lab Interpretation (test cod e = 10429-2) Abnormal [facility] GLUCOSE (AUTOMATED)2020-10-03 16:57:58* Test Item Value Reference Range Interpretation Comme nts POCT GLU (test code = 5438720344) 224 mg/dL 70-110 H Lab Interpretation (test cod e = 97493-7) [facility] 14:46:02* Test Item Value Reference Range Interpretation Comme nts MAGNESIUM (test code = 3513271734) 2.0 mg/dL 1.7-2.4 Lab Interpretation (test cod e = 93870-8) Normal [facility] GLUCOSE (AUTOMATED)2020-10-03 14:32:16* Test Item Value Reference Range Interpretation Comme nts POCT GLU (test code = 0480103382) 238 mg/dL 70-110 H Lab Interpretation (test cod e = 97304-7) [facility] [id number] 09:19:21* Test Item Value Reference Range Interpretation Comme nts TROPONIN I (test code = 6205890547) 0.002 ng/mL See_Comment [Automated message] The system which generated this result transmitted reference range: <=0.034. The reference range was not used to interpret this result as normal/abnormal. LEYDI (test code = LEYDI) Equal or Less than 0.034 ng/ml---Normal ?Note: Cardiac troponin begins to rise 3-4 hours after the onset of ischemia. Repeat in 4-6 hours if the sample was drawn within 3-4 hours of the onset of the symptom and found normal. Between 0.035 and 0.120 ng/mL--- Borderline. Questionable myocardial injury or necrosis ? ?Note: Serial measurement may be necessary to confirm or exclude the diagnosis of myocardial injury or necrosis; Clinical correlation (symptoms, EKGs, imaging studies, and others) required; Repeat in 4-6 hours if clinically indicated. ? Equal or Higher than 0.121 ng/mL---Abnormal. Myocardial Injury or Necrosis Likely ? Biotin has been reported to cause a negative bias, interpret results relative to patient's use of biotin. ? Lab Interpretation (test code = 89171-0) [facility] (Na, K, Cl, CO2, Glucose, BUN, Creatinine, Ca)2020-10-03 09:05:15* Test Item Value Reference Range Interpretation Comme nts NA (test code = 3485021849) 135 mmol/L 135-145 K (test code = 5851795880) 4.8 mmol/L 3.5-5.0 CL (test code = 5867920690) 100 mmol/L 98-108 CO2 TOTAL (test code = 7878909317) 27 mmol/L 23-31 AGAP (test code = 3164206752) 2-16 BUN (test code = 3381022473) 16 mg/dL 7-23 GLUCOSE (test code = 9775385264) 269 mg/dL 70-110 H CREATININE (test code = 4985131709) 0.41 mg/dL 0.50-1.04 L CALCIUM (test code = 9587008973) 8.1 mg/dL 8.6-10.6 L eGFR (test code = 1511885804) mL/min/1.73m2 LEYDI (test code = LEYDI) Association of Glomerular Filtration Rate (GFR) and Staging of Kidney Disease* + --+ --+ ------+| GFR (mL/min/1.73 m2) ?| With Kidney Damage ?| ?Without Kidney Damage+ --------+ --------+ +| ?>90 ?| ?Stage one ?| ? Normal ?+ ---+ ---+ -------+| ?60-89 ?| ?Stage two ?| ? Decreased GFR ? + --+ --+ ------+| ?30-59 ?| ?Stage three ?| ? Stage three ? + --+ --+ ------+| ?15-29 ?| ?Stage four ? | ? Stage four ?+ ---+ ---+ -------+| ?<15 (or dialysis) ? ?| ?Stage five ? | ? Stage five ?+ ---+ ---+ -------+ *Each stage assumes the associated GFR level has been in effect for at least three months. ?Stages 1 to 5, with or without kidney disease, indicate chronic kidney disease. Notes: Determination of stages one and two (with eGFR >59mL/min/1.73 m2) requires estimation of kidney damage for at least three months as defined by structural or functional abnormalities of the kidney, manifested by either:Pathological abnormalities or Markers of kidney damage (including abnormalities in the composition of the blood or urine or abnormalities in imaging tests). Lab Interpretation (test code = 81356-8) Abnormal [facility] with [id number] 08:27:08* Test Item Value Reference Range Interpretation Comme nts WBC (test code = 6690-2) See_Comment [Kaiam] The system which generated this result transmitted reference range: 4.30 - 11.10 10*3/?L. The reference range was not used to interpret this result as normal/abnormal. RBC (test code = 789-8) See_Comment [Automated [employer]] The system which generated this result transmitted reference range: 3.93 - 5.25 10*6/?L. The reference range was not used to interpret this result as normal/abnormal. HGB (test code = 718-7) 12.4 g/dL 11.6-15.0 HCT (test code = 4544-3) 37.4 % 35.7-45.2 MCV (test code = 787-2) 87.8 fL 80.6-95.5 MCH (test code = 785-6) 29.1 pg 25.9-32.8 MCHC (test code = 786-4) 33.2 g/dL 31.6-35.1 RDW-SD (test code = 14892-6) 42.7 fL 39.0-49.9 RDW-CV (test code = 788-0) 13.3 % 12.0-15.5 PLT (test code = 777-3) See_Comment H [Automated messa ge] The system which generated this result transmitted reference range: 166 - 358 10*3/?L. The reference range was not used to interpret this result as normal/abnormal. MPV (test code = 07971-4) 10.8 fL 9.5-12.9 NRBC/100 WBC (test code = 0101301030) See_Comment [Automated [employer] ssage] The system which generated this result transmitted reference range: 0.0 - 10.0 /100 WBCs. The reference range was not used to interpret this result as normal/abnormal. NRBC x10^3 (test code = 1580344807) <0.01 See_Comment [Automated messa ge] The system which generated this result transmitted reference range: 10*3/?L. The reference range was not used to interpret this result as normal/abnormal. GRAN MAT (NEUT) % (test code = 770-8) 91.1 % IMM GRAN % (test code = 3767410638) 0.40 % LYMPH % (test code = 736-9) 6.5 % MONO % (test code = 5905-5) 1.7 % EOS % (test code = 713-8) 0.1 % BASO % (test code = 706-2) 0.2 % GRAN MAT x10^3(ANC) (test code = 5830762959) 8.50 10*3/uL 1.88-7.09 H IMM GRAN x10^3 (test code = 6185921294) 0.04 10*3/uL 0.00-0.06 LYMPH x10^3 (test code = 731-0) 0.61 10*3/uL 1.32-3.29 L MONO x10^3 (test code = 742-7) 0.16 10*3/uL 0.33-0.92 L EOS x10^3 (test code = 711-2) <0.03 0.03-0.39 L BASO x10^3 (test code = 704-7) <0.03 0.01-0.07 Lab Interpretation (test code = 80744-4) [facility]normal [facility] CenterTHYROID STIMULATING [id number] 04:42:14 * Test Item Value Reference Range Interpretation Comme nts TSH (test code = 0965297471) See_Comment Biotin has been reported to cause a negative bias, interpret results relative to patient's use of biotin. [Automated message] The system which generated this result transmitted reference range: 0.45 - 4.70 mIU/L. The reference range was not used to interpret this result as normal/abnormal. Lab Interpretation (test code = 45721-1) [facility] [id number] 04:22:31* Test Item Value Reference Range Interpretation Comme nts FREE T4 (test code = 2581510653) See_Comment [Automated messa ge] The system which generated this result transmitted reference range: 0.78 - 2.20 ng/dL:. The reference range was not used to interpret this result as normal/abnormal. Lab Interpretation (test code = 86856-9) [facility] [id number] 04:22:31* Test Item Value Reference Range Interpretation Comme nts FREE T3 (test code = 2909495526) 3.65 pg/mL 2.77-5.27 Lab Interpretation (test cod e = 06931-2) [facility]2020-10-03 02:40:51* Test Item Value Reference Range Interpretation Comme nts POCT GLU (test code = 9288256649) 221 mg/dL 70-110 H Lab Interpretation (test cod e = 39209-2) [facility]normal [facility] CenterXR CHEST 1 [id number] 00:55:311. Mild hazy infiltrates in the lower lobes not significantly changed.2. Left-sided rib fracture not well visualized on the current exam due toangulation. If there is persistent high clinical concernthis can becorrelated with cross-sectional imaging. RL: 135 ORDERING PHYSICIAN: Minoo ALFARO ?CHERY HISTORY: Pain ? COMPARISON: 10/01/2020 FI NDINGS: Single frontal view of the chest. Heart is normal in size. ?There is no pulmonary edema. Mild hazyinfiltrates in the lower lobes do not appear significantly changed. Thereis no pneumothorax. ?There are no pleural effusions. Previously seenleft-sided rib fractures not well visualized on the current exam. Pleasenote that chest radiography is not a sensitive modality for the detectionof masses. [facility], Radiant Results Inft User - 10/02/2020 7:56 PM CDTORDERING PHYSICIAN: DOMINIC ADAMS HISTORY: Pain COMPARISON: 10/01/2020FINDINGS:Single frontal view of the chest.Heart is normal in size. There is no pulmonary edema. Mild hazyinfiltrates in the lower lobes do not appear significantly changed. Thereis no pneumothorax. There are no pleural effusions. Previously seenleft-sided rib fractures not well visualized on the current exam. Pleasenote that chest radiography is not a sensitive modality for the detectionof masses.IMPRESSION1. Mild hazy infiltrates in the lower lobes not significantlychanged.2. Left-sided rib fracture not well visualized on the current exam due toangulation. If there is persistent high clinical concern this can becorrelated with cross-sectional imaging.RL: 135 [facility] [id number] 23:43:53* Test Item Value Reference Range Interpretation Comme nts TROPONIN I (test code = 7554925420) 0.002 ng/mL See_Comment [Automated message] The system which generated this result transmitted reference range: <=0.034. The reference range was not used to interpret this result as normal/abnormal. LEYDI (test code = LEYDI) Equal or Less than 0.034 ng/ml---Normal ?Note: Cardiac troponin begins to rise 3-4 hours after the onset of ischemia. Repeat in 4-6 hours if the sample was drawn within 3-4 hours of the onset of the symptom and found normal. Between 0.035 and 0.120 ng/mL--- Borderline. Questionable myocardial injury or necrosis ? ?Note: Serial measurement may be necessary to confirm or exclude the diagnosis of myocardial injury or necrosis; Clinical correlation (symptoms, EKGs, imaging studies, and others) required; Repeat in 4-6 hours if clinically indicated. ? Equal or Higher than 0.121 ng/mL---Abnormal. Myocardial Injury or Necrosis Likely ? Biotin has been reported to cause a negative bias, interpret results relative to patient's use of biotin. ? Lab Interpretation (test code = 99249-1) Normal [facility] GLUCOSE (AUTOMATED)2020-10-02 21:51:42* Test Item Value Reference Range Interpretation Comme nts POCT GLU (test code = 6042055534) 156 mg/dL 70-110 H Lab Interpretation (test cod e = 62435-3) [facility]normal [facility] CenterMRSA / MSSA Screen by Gokul [id number] 19:18:12* Test Item Value Reference Range Interpretation Comme nts MSSA Screen by Gokul ESPINOZA (t est code = 71169-1) Negative Negative MRSA/MSSA Positive? (test co de = 5667741006) No No Lab Interpretation (test cod e = 72702-7) Normal [facility] GLUCOSE (AUTOMATED)2020-10-02 17:08:45* Test Item Value Reference Range Interpretation Comme nts POCT GLU (test code = 1371341773) 154 mg/dL 70-110 H Lab Interpretation (test cod e = 30093-0) Abnormal [facility] HEAD WO [id number] 16:54:57Limited evaluation due to motion artifact. Shallow Acute subdural hemorrhage suspected along the right tentorialleaflet measuring up to 3 mm in maximum thickness. Short-term follow-up isrecommended. Chronic left SENIOR BOOKKEEPER territory infarct. Preliminary Report Dictated by Resident: Myrna Stafford I, Ciara Colvin MD., have reviewed this study and agree with the abovereport.CT HEAD WITHOUT CONTRAST HISTORY: Cerebral hemorrhage suspected COMPARISON: ?CT head without contrast 10/02/2020 TECHNIQUE: Axial CTof the head was performed and reconstructed at 5 mmintervals. Coronal and sagittal reformatted images were generated. FINDINGS: Evaluation is limited by motion artifact. Trace of hyperdensity is noted at the right right tentorial leafletmeasuring up to 3 mm in maximum thickness and appears slightlymoreconspicuous compared to prior study may represent acute subduralhemorrhage. No intracranial abnormality such as edema, mass, mass- effect, midline shiftis appreciated. Left occipital encephalomalacia with ex vacuo dilation of the left lateralventricle posterior horn, likely sequela of prior leftPCA territoryinfarct.The ventricles, sulci, and basal cisterns are otherwise withinnormal limits. No hydrocephalus is seen. The gil-white matterdifferentiation is preserved. Scattered hypodensities in the periventricular and deep white matter,nonspecific likely represent microvascular ischemic changes The calvarium and skull base are intact. The visualized paranasal sinusesand mastoid air cells are clear. [facility], Radiant Results Inft User - 10/02/2020 11:56 AM CDTCT HEAD WITHOUT CONTRASTHISTORY:Cerebral hemorrhage suspected COMPARISON: CT head without contrast 10/02/2020TECHNIQUE: Axial CT of the head was performed and reconstructed at 5 mmintervals. Coronal and sagittal reformatted images were generated.FINDINGS:Evaluation is limited by motion artifact.Trace of hyperdensity is noted at the right right tentorial leafletmeasuring up to 3 mm in maximum thickness and appears slightly morecon spicuous compared to prior study may represent acute subduralhemorrhage.No intracranial abnormalitysuch as edema, mass, mass-effect, midline shiftis appreciated.Left occipital encephalomalacia with ex vacuo dilation of the left lateralventricle posterior horn, likely sequela of prior left SENIOR BOOKKEEPER jacob toryinfarct.The ventricles, sulci, and basal cisterns are otherwise withinnormal limits. No hydrocephalus is seen. The gil-white matterdifferentiation is preserved.Scattered hypodensities in the periventricular and deep white matter,nonspecific likely represent microvascular ischemic changesThe calvarium and skull base are intact. The visualized paranasal sinusesand mastoid air cells are clear.IMPRESSIONLimited evaluation due to motion artifact.Shallow Acute subdural hemorrhage suspected alongthe right tentorialleaflet measuring up to 3 mm in maximum thickness. Short-term follow-up isrecommended.Chronic left SENIOR BOOKKEEPER territory infarct.Preliminary Report Dictated by Resident: Deep Mondragon MD., have reviewed this study and agree with the abovereport.[facility]TROP[facility] [id number] 16:07:52* Test Item Value Reference Range Interpretation Comme nts TROPONIN I (test code = 6765022333) 0.001 ng/mL See_Comment [Automated message] The system which generated this result transmitted reference range: <=0.034. The reference range was not used to interpret this result as normal/abnormal. LEYDI (test code = LEYDI) Equal or Less than 0.034 ng/ml---Normal ?Note: Cardiac troponin begins to rise 3-4 hours after the onset of ischemia. Repeat in 4-6 hours if the sample was drawn within 3-4 hours of the onset of the symptom and found normal. Between 0.035 and 0.120 ng/mL--- Borderline. Questionable myocardial injury or necrosis ? ?Note: Serial measurement may be necessary to confirm or exclude the diagnosis of myocardial injury or necrosis; Clinical correlation (symptoms, EKGs, imaging studies, and others) required; Repeat in 4-6 hours if clinically indicated. ? Equal or Higher than 0.121 ng/mL---Abnormal. Myocardial Injury or Necrosis Likely ? Biotin has been reported to cause a negative bias, interpret results relative to patient's use of biotin. ? Lab Interpretation (test code = 94813-4) Normal [facility]2021-[facility] 15:55:29* Test Item Value Reference Range Interpretation Comme nts MAGNESIUM (test code = 3554487608) 1.2 mg/dL 1.7-2.4 L Slight hemolysis Lab Interpretation (test code = 48064-8) [facility]normal [facility] CenterC-REACTIVE [id number] 14:22:59* Test Item Value Reference Range Interpretation Comme nts CRP (test code = 4442539788) 2.2 mg/dL <0.8 H Lab Interpretation (test cod e = 89866-1) [facility]normal [facility] CenterCT ACUTE STROKE ANGIOGRAM [id number] 14:15:55No proximal large vessel occlusion seen. Advanced intracranial atherosclerosis with up to severe stenosis seen inthe right supraclinoid segment. Moderate to severe stenosis also noted inthe left supraclinoid segment. These findings have progressed since [id number] examination. Right distal common carotid/proximal ICA stent noted. Slight narrowing ofthe stent in the midportion is seen without flow-limiting stenosis. Additional findings of advanced atherosclerosis of the intra andextracranial vasculature as above. Preliminary Report Dictated by Resident: Nacho Deal MD.,have reviewed this study and agree with theabove report.EXAM: CT STROKE ANGIOGRAM HEAD, CT STROKE ANGIOGRAM NECK HISTORY: 69 years -old Female with Acute Stroke Rad: please obtain POCTcreatinine prior to CTA head/neck TECHNIQUE: CT angiography of the neck and head after the intravenousdemonstrationof 100 ?mL of Isovue contrast. Axial images werereconstructed at 0.625 mm slice thickness. Coronal and sagittal reformatsincluding MIPs were provided. 3-D volume rendered imaging of theintracranial vasculature was also performed. COMPARISON: CT head and neck 11/16/2016 FINDINGS: CTA HEAD: The PICA origins are not visualized. AICA/PICA variant is suspectedbilaterally. Mild focal narrowing of the basilar artery in its distalsegment (605:75). The superior cerebellar arteries are unremarkable.Multifocal narrowing in both SENIOR BOOKKEEPER segments with up to mild to moderatenarrowing in the proximal left P2 segment. Atherosclerosis of the carotid siphons with up to severe narrowing of theright supraclinoid segment. Moderate to severe narrowing is also seen inthe left supraclinoid segment. Distal flow in theanterior and middlecerebral arteries is appropriate. Multifocal atherosclerotic narrowing ofthe left FANTA with up to moderate long segment stenoses seen in the left T2wbphlvm (804:44). The dural venous sinuses are grossly patent noting the present exam is notspecifically tailored for evaluation of the dural venous sinuses. Left PCAterritory encephalomalacia is noted again. CTA NECK: Aortic arch and arch vessel origins: Common origin of the brachiocephalictrunk and left common carotid artery., Moderate atherosclerosis of theaortic arch. Soft plaque at the left subclavian ostium results in modera tenarrowing. Focal luminal outpouching at the subclavian ostium with smalllinear filling defect (607:44) may reflect plaque ulceration with tracethrombus (307:308) or focal chronic dissection. Finding was present butslightly more pronounced since prior exam in 2017. Innominate and subclavian arteries: Patent on both sides Common carotids and internal carotid arteries: Right distalcarotid/proximalICA stent noted. Focal narrowing at the midportion of thestent without flow-limiting stenosis. Moderate calcific plaques at thebifurcation of the left common carotid artery is approximately 30%stenosis. Vertebral arteries: Both vertebral arteries originate from the subclavianartery and are patent through their cervical courses. Multifocal narrowingof the right intradural vertebral artery with up to moderate stenosis atthe mid segment (306:236). Mild multifocal atherosclerotic narrowing of theleft V4 segment. Soft plaque at the left vertebral artery ostium andcalcified plaque on the right result in no more than mild luminalnarrowing. Lung apices: Scattered airspace and interstitial opacitieslikelyreflecting infectious process. Mild pulmonary vascular congestion andinterstitial edema. Cervical spine: Multilevel mild to moderate degenerative changes with discspace narrowing prominent at C5-C6 and C6-C7. [facility], Radiant Results Inft User - 10/02/2020 9:17 AM CDTEXAM: CT STROKE ANGIOGRAM HEAD, CT STROKE ANGIOGRAM NECKHISTORY: 69 years -old Female with Acute Stroke Rad: please obtain POCTcreatinine prior to CTA head/neckTECHNIQUE: CT angiography of the neck and head after the intravenousdemonstration of 100 mL of Isovue contrast. Axial images werereconstructed at 0.625 mm slice thickness. Coronal and sagittal reformatsincluding MIPs were provided. 3-D volume rendered imaging of theintracranial vasculature was also performed. COMPARISON: CT head and neck 11/16/2016FINDINGS:CTA HEAD: The PICA origins are not visualized. AICA/PICA variant is suspectedbilaterally. Mild focal narrowingof the basilar artery in its distalsegment (605:75). The superior cerebellar arteries are unremarkable.Multifocal narrowing in both SENIOR BOOKKEEPER segments with up to mild to moderatenarrowing in the proximal left P2 segment.Atherosclerosis of the carotid siphons with up to severe narrowing of theright supraclinoid segment. Moderate to severe narrowing is also seen inthe left supraclinoid segment. Distal flow in the anterior and middlecerebral arteries is appropriate. Multifocal atherosclerotic narrowing ofthe left FANTA with up to moderate long segment stenoses seen in the left [id number] (804:44). The dural venous sinuses are grossly patent noting the present exam is notspecifically tailored for evaluat ion of the dural venous sinuses. Left PCAterritory encephalomalacia is noted again.CTA NECK:Aortic arch and arch vessel origins: Common origin of the brachiocephalictrunk and left common carotid artery., Moderate atherosclerosis of theaortic arch. Soft plaque at the left subclavian ostium results in moderatenarrowing. Focal luminal outpouching at the subclavian ostium with smalllinear filling defect (607:44) may reflect plaque ulceration with tracethrombus (307:308) or focal chronic dissection.Finding was present butslightly more pronounced since prior exam in 2017.Innominate and subclavian a rteries: Patent on both sidesCommon carotids and internal carotid arteries: Right distalcarotid/proximal ICA stent noted. Focal narrowing at the midportion of thestent without flow-limiting stenosis.Moderate calcific plaques at thebifurcation of the left common carotid artery is approximately 30%st enosis.Vertebral arteries: Both vertebral arteries originate from the subclavianartery and are patent through their cervical courses. Multifocal narrowingof the right intradural vertebral artery withup to moderate stenosis atthe mid segment (306:236). Mild multifocal atherosclerotic narrowing of th eleft V4 segment. Soft plaque at the left vertebral artery ostium andcalcified plaque on the right result in no more than mild luminalnarrowing. Lung apices: Scattered airspace and interstitial opacities likelyreflecting infectious process. Mild pulmonary vascular congestion andinterstitial edema.Cervical spine: Multilevel mild to moderate degenerative changes with discspace narrowing prominent at C5-C6 and C6-C7. IMPRESSIONNo proximal large vessel occlusion seen.Advanced intracranial atherosclerosis with up to severe stenosis seen inthe right supraclinoid segment. Moderate to severe stenosisalso noted inthe left supraclinoid segment. These findings have progressed since [id number] examination .Right distal common carotid/proximal ICA stent noted. Slight narrowing ofthe stent in the midportion is seen without flow-limiting stenosis.Additional findings of advanced atherosclerosis of the intra andextracranial vasculature as above.Preliminary Report Dictated by Resident: Nacho Long MD., have reviewed this study and agree with theabove report. [facility] [id number] 14:15:55No proximal large vessel occlusion seen. Advanced intracranial atherosclerosis with up to severe stenosis seen inthe right supraclinoid segment. Moderate to severe stenosis also noted inthe left supraclinoid segment. These findings have progressed since [id number] examination. Right distal common carotid/proximal ICA stent noted. Slight narrowing ofthe stent in the midportion is seen without flow-limiting stenosis. Additional findings of advanced atherosclerosis of the intra andextracranial vasculature as above. Preliminary Report Dictated by Resident: Nacho Deal MD.,have reviewed this study and agree with theabove report.EXAM: CT STROKE ANGIOGRAM HEAD, CT STROKE ANGIOGRAM NECK HISTORY: 69 years -old Female with Acute Stroke Rad: please obtain POCTcreatinine prior to CTA head/neck TECHNIQUE: CT angiography of the neck and head after the intravenousdemonstrationof 100 ?mL of Isovue contrast. Axial images werereconstructed at 0.625 mm slice thickness. Coronal and sagittal reformatsincluding MIPs were provided. 3-D volume rendered imaging of theintracranial vasculature was also performed. COMPARISON: CT head and neck 11/16/2016 FINDINGS: CTA HEAD: The PICA origins are not visualized. AICA/PICA variant is suspectedbilaterally. Mild focal narrowing of the basilar artery in its distalsegment (605:75). The superior cerebellar arteries are unremarkable.Multifocal narrowing in both SENIOR BOOKKEEPER segments with up to mild to moderatenarrowing in the proximal left P2 segment. Atherosclerosis of the carotid siphons with up to severe narrowing of theright supraclinoid segment. Moderate to severe narrowing is also seen inthe left supraclinoid segment. Distal flow in theanterior and middlecerebral arteries is appropriate. Multifocal atherosclerotic narrowing ofthe left FANTA with up to moderate long segment stenoses seen in the left [id number] (804:44). The dural venous sinuses are grossly patent noting the present exam is notspecifically tailored for evaluation of the dural venous sinuses. Left PCAterritory encephalomalacia is noted again. CTA NECK: Aortic arch and arch vessel origins: Common origin of the brachiocephalictrunk and left common carotid artery., Moderate atherosclerosis of theaortic arch. Soft plaque at the left subclavian ostium results in modera tenarrowing. Focal luminal outpouching at the subclavian ostium with smalllinear filling defect (607:44) may reflect plaque ulceration with tracethrombus (307:308) or focal chronic dissection. Finding was present butslightly more pronounced since prior exam in 2017. Innominate and subclavian arteries: Patent on both sides Common carotids and internal carotid arteries: Right distalcarotid/proximalICA stent noted. Focal narrowing at the midportion of thestent without flow-limiting stenosis. Moderate calcific plaques at thebifurcation of the left common carotid artery is approximately 30%stenosis. Vertebral arteries: Both vertebral arteries originate from the subclavianartery and are patent through their cervical courses. Multifocal narrowingof the right intradural vertebral artery with up to moderate stenosis atthe mid segment (306:236). Mild multifocal atherosclerotic narrowing of theleft V4 segment. Soft plaque at the left vertebral artery ostium andcalcified plaque on the right result in no more than mild luminalnarrowing. Lung apices: Scattered airspace and interstitial opacitieslikelyreflecting infectious process. Mild pulmonary vascular congestion andinterstitial edema. Cervical spine: Multilevel mild to moderate degenerative changes with discspace narrowing prominent at C5-C6 and C6-C7. [facility], Radiant Results Inft User - 10/02/2020 9:17 AM CDTEXAM: CT STROKE ANGIOGRAM HEAD, CT STROKE ANGIOGRAM NECKHISTORY: 69 years -old Female with Acute Stroke Rad: please obtain POCTcreatinine prior to CTA head/neckTECHNIQUE: CT angiography of the neck and head after the intravenousdemonstration of 100 mL of Isovue contrast. Axial images werereconstructed at 0.625 mm slice thickness. Coronal and sagittal reformatsincluding MIPs were provided. 3-D volume rendered imaging of theintracranial vasculature was also performed. COMPARISON: CT head and neck 11/16/2016FINDINGS:CTA HEAD: The PICA origins are not visualized. AICA/PICA variant is suspectedbilaterally. Mild focal narrowingof the basilar artery in its distalsegment (605:75). The superior cerebellar arteries are unremarkable.Multifocal narrowing in both SENIOR BOOKKEEPER segments with up to mild to moderatenarrowing in the proximal left P2 segment.Atherosclerosis of the carotid siphons with up to severe narrowing of theright supraclinoid segment. Moderate to severe narrowing is also seen inthe left supraclinoid segment. Distal flow in the anterior and middlecerebral arteries is appropriate. Multifocal atherosclerotic narrowing ofthe left FANTA with up to moderate long segment stenoses seen in the left [id number] (804:44). The dural venous sinuses are grossly patent noting the present exam is notspecifically tailored for evaluat ion of the dural venous sinuses. Left PCAterritory encephalomalacia is noted again.CTA NECK:Aortic arch and arch vessel origins: Common origin of the brachiocephalictrunk and left common carotid artery., Moderate atherosclerosis of theaortic arch. Soft plaque at the left subclavian ostium results in moderatenarrowing. Focal luminal outpouching at the subclavian ostium with smalllinear filling defect (607:44) may reflect plaque ulceration with tracethrombus (307:308) or focal chronic dissection.Finding was present butslightly more pronounced since prior exam in 2017.Innominate and subclavian a rteries: Patent on both sidesCommon carotids and internal carotid arteries: Right distalcarotid/proximal ICA stent noted. Focal narrowing at the midportion of thestent without flow-limiting stenosis.Moderate calcific plaques at thebifurcation of the left common carotid artery is approximately 30%st enosis.Vertebral arteries: Both vertebral arteries originate from the subclavianartery and are patent through their cervical courses. Multifocal narrowingof the right intradural vertebral artery withup to moderate stenosis atthe mid segment (306:236). Mild multifocal atherosclerotic narrowing of th eleft V4 segment. Soft plaque at the left vertebral artery ostium andcalcified plaque on the right result in no more than mild luminalnarrowing. Lung apices: Scattered airspace and interstitial opacities likelyreflecting infectious process. Mild pulmonary vascular congestion andinterstitial edema.Cervical spine: Multilevel mild to moderate degenerative changes with discspace narrowing prominent at C5-C6 and C6-C7. IMPRESSIONNo proximal large vessel occlusion seen.Advanced intracranial atherosclerosis with up to severe stenosis seen inthe right supraclinoid segment. Moderate to severe stenosisalso noted inthe left supraclinoid segment. These findings have progressed since [id number] examination .Right distal common carotid/proximal ICA stent noted. Slight narrowing ofthe stent in the midportion is seen without flow-limiting stenosis.Additional findings of advanced atherosclerosis of the intra andextracranial vasculature as above.Preliminary Report Dictated by Resident: Nacho Long MD., have reviewed this study and agree with theabove report. [facility] (27833)(TOTAL CHOLESTEROL, TRIGLYCERIDES, HDL)2020-10-02 13:34:07* Test Item Value Reference Range Interpretation Comme nts CHOL (test code = 3287160906) 213 mg/dL 120-200 H HDL (test code = 6797759923) 26 mg/dL >50 L HDLC RATIO (test code = 4279124374) See_Comment H [Automated [employer]] The system which generated this result transmitted reference range: <=4.5. The reference range was not used to interpret this result as normal/abnormal. TRIG (test code = 5840675997) 157 mg/dL 30-170 LDL CHOL (test code = 97689-5) 156 mg/dL See_Comment [Automated [employer]] The system which generated this result transmitted reference range: <=160. The reference range was not used to interpret this result as normal/abnormal. VLDL (test code = 0866891213) 31 mg/dL 5-60 Lab Interpretation (test code = 17477-4) [facility]normal [facility] CenterProfile / [id number] 13:29:10* Test Item Value Reference Range Interpretation Comme nts WBC (test code = 6690-2) See_Comment [Automated message] The system which generated this result transmitted reference range: 4.30 - 11.10 10*3/?L. The reference range was not used to interpret this result as normal/abnormal. RBC (test code = 789-8) See_Comment [Automated message] The system which generated this result transmitted reference range: 3.93 - 5.25 10*6/?L. The reference range was not used to interpret this result as normal/abnormal. HGB (test code = 718-7) 13.3 g/dL 11.6-15.0 HCT (test code = 4544-3) 39.5 % 35.7-45.2 MCH (test code = 785-6) 29.1 pg 25.9-32.8 MCV (test code = 787-2) 86.4 fL 80.6-95.5 MCHC (test code = 786-4) 33.7 g/dL 31.6-35.1 PLT (test code = 777-3) See_Comment H [Automated message] The system which generated this result transmitted reference range: 166 - 358 10*3/?L. The reference range was not used to interpret this result as normal/abnormal. MPV (test code = 46589-1) 10.9 fL 9.5-12.9 RDW-CV (test code = 788-0) 13.2 % 12.0-15.5 RDW-SD (test code = 43297-0) 41.0 fL 39.0-49.9 NRBC x10^3 (test code = 9882374410) <0.01 See_Comment [Automated [employer] ge] The system which generated this result transmitted reference range: 10*3/?L. The reference range was not used to interpret this result as normal/abnormal. NRBC/100 WBC (test code = 2742229876) See_Comment [Automated [employer] ge] The system which generated this result transmitted reference range: 0.0 - 10.0 /100 WBCs. The reference range was not used to interpret this result as normal/abnormal. IPF % (test code = 5317952911) Lab Interpretation (test code = 50826-0) [facility]normal [facility] [id number] 13:24:07* Test Item Value Reference Range Interpretation Comme nts TROPONIN I (test code = 8334828932) 0.004 ng/mL See_Comment [Automated message] The system which generated this result transmitted reference range: <=0.034. The reference range was not used to interpret this result as normal/abnormal. LEYDI (test code = LEYDI) Equal or Less than 0.034 ng/ml---Normal ?Note: Cardiac troponin begins to rise 3-4 hours after the onset of ischemia. Repeat in 4-6 hours if the sample was drawn within 3-4 hours of the onset of the symptom and found normal. Between 0.035 and 0.120 ng/mL--- Borderline. Questionable myocardial injury or necrosis ? ?Note: Serial measurement may be necessary to confirm or exclude the diagnosis of myocardial injury or necrosis; Clinical correlation (symptoms, EKGs, imaging studies, and others) required; Repeat in 4-6 hours if clinically indicated. ? Equal or Higher than 0.121 ng/mL---Abnormal. Myocardial Injury or Necrosis Likely ? Biotin has been reported to cause a negative bias, interpret results relative to patient's use of biotin. ? Lab Interpretation (test code = 87440-0) Normal [facility]2020-10-02 13:12:24* Test Item Value Reference Range Interpretation Comme [facility] POCT GLU (test code = 3955752707) 229 mg/dL 70-110 H Lab Interpretation (test cod e = 02019-0) Abnormal [facility] Metabolic Panel (NA, K, CL, CO2, Glucose, BUN, Creatinine, CA)2020-10-02 13:08:27* Test Item Value Reference Range Interpretation Comme [facility] NA (test code = 6241771869) 131 mmol/L 135-145 L K (test code = 4452467816) 4.7 mmol/L 3.5-5.0 Slight hemolysis CL (test code = 9974875102) 94 mmol/L 98-108 L CO2 TOTAL (test code = 4799423824) 28 mmol/L 23-31 AGAP (test code = 2512736501) 2-16 BUN (test code = 2309713182) 19 mg/dL 7-23 Slight hemolysis GLUCOSE (test code = 3790178117) 263 mg/dL 70-110 H CREATININE (test code = 3815529514) 0.57 mg/dL 0.50-1.04 CALCIUM (test code = 8385330932) 8.9 mg/dL 8.6-10.6 eGFR (test code = 4882369197) mL/min/1.73m2 LEYDI (test code = LEYDI) Association of Glomerular Filtration Rate (GFR) and Staging of Kidney Disease* + -----+ --------+ +| GFR (mL/min/1.73 m2) ?| With Kidney Damage ?| ?Without Kidney Damage+ +------- +---- --+| ?>90 ?| ?Stage one ?| ? Normal ?+ ------+ ---------+--------- +| ?60-89 ?| ?Stage two ?| ? Decreased GFR ? + -----+ --------+ +| ?30-59 ?| ?Stage three ?| ? Stage three ? + -----+ --------+ +| ?15-29 ?| ?Stage four ? | ? Stage four ?+ ------+ ---------+--------- +| ?<15 (or dialysis) ? ?| ?Stage five ? | ? Stage five ?+ ------+ ---------+--------- + *Each stage assumes the associated GFR level has been in effect for at least three months. ?Stages 1 to 5, with or without kidney disease, indicate chronic kidney disease. Notes: Determination of stages one and two (with eGFR >59mL/min/1.73 m2) requires estimation of kidney damage for at least three months as defined by structural or functional abnormalities of the kidney, manifested by either:Pathological abnormalities or Markers of kidney damage (including abnormalities in the composition of the blood or urine or abnormalities in imaging tests). Lab Interpretation (test code = 09612-9) [facility]normal [facility] CenterProthrombin Time / [id number] 13:06:07* Test Item Value Reference Range Interpretation Comme nts PARESHIME PATIENT (test code = 5964-2) See_Comment [Automated [employer]] The system which generated this result transmitted reference range: 10.1 - 12.6 Seconds. The reference range was not used to interpret this result as normal/abnormal. INR (test code = 6301-6) Normal INR <1.1; Warfarin Therapeutic range 2.0 to 3.0 or 2.5 to 3.5, depending upon the indications. Lab Interpretation (test code = 92580-2) Normal [facility] CenteraPTT2021-04-[facility] 13:06:07* Test Item Value Reference Range Interpretation Comme nts APTT Patient (test code = 3173-2) See_Comment [Automated [employer]] The system which generated this result transmitted reference range: 26 - 36 Seconds. The reference range was not used to interpret this result as normal/abnormal. Lab Interpretation (test code = 00707-5) Normal [facility]CT [facility] WO [id number] 12:56:46No acute intracranial hemorrhage or mass effect. Evaluation of posterior fossa is markedly degradedby motion artifact. Preliminary Report Dictated by Resident: Nacho Deal MD., have reviewed this study and agree with theabove report.EXAM: CT STROKE HEAD WO CONTRAST HISTORY: 69 years old Female with Neuro deficit, acute, stroke suspected COMPARISON: CT head 11/20/2016 TECHNIQUE: Helical computerized tomography of the head without IV contrast.Sagittal and coronal reformats were generated. FINDINGS: Study is degraded by motion artifact. The ventricles and cerebral sulci are normal in caliber and configurationfor patient age No hydrocephalus, midline shift or pathological extra-axialfluid collection is present. The basal cisterns are unremarkable. Chronic left SENIOR BOOKKEEPER infarct noted. No acute intracranial hemorrhage orsignificant mass effect. Scattered patchy hypoattenuation in theperiventricular and deep white matter, nonspecific, may be seen withchronic microvascular changes. The mastoid air cells and paranasal air sinuses are clear. Intracranialatherosclerosis. Bilateral pseudophakia. The calvarium and central skullbase are unremarkable. [facility], Radiant Results Inft User - 10/02/2020 7:57 AM CDTEXAM: CT STROKE HEAD WO CONTRASTHISTORY: 69 years old Female with N euro deficit, acute, stroke suspected COMPARISON: CT head 11/20/2016TECHNIQUE: Helical computerized tomography of the head without IV contrast.Sagittal and coronal reformats were generated.FINDINGS:Study is degraded by motion artifact.The ventricles and cerebral sulci are normal in caliber and config urationfor patient age No hydrocephalus, midline shift or pathological extra- axialfluid collection is present. The basal cisterns are unremarkable.Chronic left SENIOR BOOKKEEPER infarct noted. No acute intracranial hemorrhage orsignificant mass effect. Scattered patchy hypoattenuation in theperiventricular and deep white matter, nonspecific, may be seen withchronic microvascular changes.The mastoid air cells and paranasal air sinuses are clear. Intracranialatherosclerosis. Bilateral pseudophakia. The calvarium and central skullbase are unremarkable.IMPRESSIONNo acute intracranial hemorrhage or mass effect. Evaluation of posterior fossa is markedly degraded by motion artifact.Preliminary Report Dictated by Resident: Nacho Long MD., have reviewed this study and agree with theabove report. [facility]2020-10-02 11:40:11* Test Item Value Reference Range Interpretation Comme nts POCT GLU (test code = 3874747716) 275 mg/dL 70-110 H Lab Interpretation (test cod e = 89598-7) Abnormal [facility] Metabolic Panel (NA, K, CL, CO2, GLUCOSE, BUN, CREATININE, CA)2020-10-02 11:23:39* Test Item Value Reference Range Interpretation Comme [facility] NA (test code = 7135932433) 135 mmol/L 135-145 K (test code = 7375042646) 3.8 mmol/L 3.5-5.0 CL (test code = 5308202097) 95 mmol/L 98-108 L CO2 TOTAL (test code = 2284510952) 34 mmol/L 23-31 H AGAP (test code = 3597726262) 2-16 BUN (test code = 7229286673) 22 mg/dL 7-23 GLUCOSE (test code = 7416231926) 262 mg/dL 70-110 H CREATININE (test code = 0667087040) 0.64 mg/dL 0.50-1.04 CALCIUM (test code = 1641669966) 9.0 mg/dL 8.6-10.6 eGFR (test code = 1110657684) mL/min/1.73m2 LEYDI (test code = LEYDI) Association of Glomerular Filtration Rate (GFR) and Staging of Kidney Disease* + --+ --+ ------+| GFR (mL/min/1.73 m2) ?| With Kidney Damage ?| ?Without Kidney Damage+ --------+ --------+ +| ?>90 ?| ?Stage one ?| ? Normal ?+ ---+ ---+ -------+| ?60-89 ?| ?Stage two ?| ? Decreased GFR ? + --+ --+ ------+| ?30-59 ?| ?Stage three ?| ? Stage three ? + --+ --+ ------+| ?15-29 ?| ?Stage four ? | ? Stage four ?+ ---+ ---+ -------+| ?<15 (or dialysis) ? ?| ?Stage five ? | ? Stage five ?+ ---+ ---+ -------+ *Each stage assumes the associated GFR level has been in effect for at least three months. ?Stages 1 to 5, with or without kidney disease, indicate chronic kidney disease. Notes: Determination of stages one and two (with eGFR >59mL/min/1.73 m2) requires estimation of kidney damage for at least three months as defined by structural or functional abnormalities of the kidney, manifested by either:Pathological abnormalities or Markers of kidney damage (including abnormalities in the composition of the blood or urine or abnormalities in imaging tests). Lab Interpretation (test code = 97979-0) [facility]normal [facility] CenterCB with [id number] 10:50:31* Test Item Value Reference Range Interpretation Comme nts WBC (test code = 6690-2) See_Comment [Kaiam] The system which generated this result transmitted reference range: 4.30 - 11.10 10*3/?L. The reference range was not used to interpret this result as normal/abnormal. RBC (test code = 789-8) See_Comment [Kaiam] The system which generated this result transmitted reference range: 3.93 - 5.25 10*6/?L. The reference range was not used to interpret this result as normal/abnormal. HGB (test code = 718-7) 12.5 g/dL 11.6-15.0 HCT (test code = 4544-3) 37.6 % 35.7-45.2 MCV (test code = 787-2) 87.2 fL 80.6-95.5 MCH (test code = 785-6) 29.0 pg 25.9-32.8 MCHC (test code = 786-4) 33.2 g/dL 31.6-35.1 RDW-SD (test code = 64053-5) 42.5 fL 39.0-49.9 RDW-CV (test code = 788-0) 13.3 % 12.0-15.5 PLT (test code = 777-3) See_Comment [Automated [employer] ge] The system which generated this result transmitted reference range: 166 - 358 10*3/?L. The reference range was not used to interpret this result as normal/abnormal. MPV (test code = 06956-3) 10.6 fL 9.5-12.9 NRBC/100 WBC (test code = 0402441349) See_Comment [Automated [employer] ssage] The system which generated this result transmitted reference range: 0.0 - 10.0 /100 WBCs. The reference range was not used to interpret this result as normal/abnormal. NRBC x10^3 (test code = 4511125798) <0.01 See_Comment [Automated [employer] ge] The system which generated this result transmitted reference range: 10*3/?L. The reference range was not used to interpret this result as normal/abnormal. GRAN MAT (NEUT) % (test code = 770-8) 72.9 % IMM GRAN % (test code = 5781349863) 0.50 % LYMPH % (test code = 736-9) 12.6 % MONO % (test code = 5905-5) 10.5 % EOS % (test code = 713-8) 2.7 % BASO % (test code = 706-2) 0.8 % GRAN MAT x10^3(ANC) (test code = 8947112078) 4.81 10*3/uL 1.88-7.09 IMM GRAN x10^3 (test code = 0996558175) 0.03 10*3/uL 0.00-0.06 LYMPH x10^3 (test code = 731-0) 0.83 10*3/uL 1.32-3.29 L MONO x10^3 (test code = 742-7) 0.69 10*3/uL 0.33-0.92 EOS x10^3 (test code = 711-2) 0.18 10*3/uL 0.03-0.39 BASO x10^3 (test code = 704-7) 0.05 10*3/uL 0.01-0.07 Lab Interpretation (test code = 93218-9) Abnormal [facility] GLUCOSE (AUTOMATED)2020-10-02 05:26:53* Test Item Value Reference Range Interpretation Comme nts POCT GLU (test code = 4185061462) 309 mg/dL 70-110 H Lab Interpretation (test cod e = 69097-6) Abnormal [facility] GLUCOSE (AUTOMATED)2020-10-02 03:46:09* Test Item Value Reference Range Interpretation Comme nts POCT GLU (test code = 3603452077) 321 mg/dL 70-110 H Lab Interpretation (test cod e = 83593-1) [facility]normal [facility]AL[facility]ONIN2021-[facility] 03:44:33* Test Item Value Reference Range Interpretation Comme nts Procalcitonin (test code = 3196034625) 0.04 ng/mL <0.07 LEYDI (test code = LEYDI) INTERPRETATION OF PROCALCITONIN RESULTS IN ADULTS >= 18 YEARS OF AGE Initiation and discontinuation of antibiotics on patients with suspected or confirmed Lower Respiratory Tract Infection in Adults >= 18 years of age. + +-------- --------+ + -----+|Procalcitonin |Interpretation ?|Antibiotic ? ? |Considerations ? |ng/mL ? | ?|recommendation | ? + +-------- --------+ + -----+| <0.1 ? | Bacterial ? ? ?| Strongly ? ? ?| ? | ?| infection very | discouraged ? | Overruling: ? | ?| unlikely ? ? ? | ? | ? Clinically unstable ? ? ? + +-------- --------+ + ? High risk for adverse ? ? | <0.25 ?| Bacterial ? ? ?| Discouraged ? | ? outcome ? | ?| infection ? ? ?| ? | ? SEE IMPORTANT NOTE ?| ?| unlikely ? ? ? | ? | ? + +-------- --------+ + -----+| >=0.25 ? ? ? | Bacterial ? ? ?| Encouraged ? ?| ? | ?| infection ? ? ?| ? | ? | ?| likely ? | ? | Consider treatment failure ?+ +------- ---------+ -+ if levels does not decrease | >0.5 ? | Bacterial ? ? ?| Strongly ? ? ?| appropriately ? | ?| infection very | encouraged ? ?| ? | ?| likely ? | ? | ? + +-------- --------+ + -----+ Discontinuation of antibiotics in high-acuity patients with suspected or confirmed sepsis in Adults >= 18 years of age. + +-------- --------+ + -----+|Procalcitonin |Interpretation ?|Antibiotic ? ? |Considerations ? |ng/mL ? | ?|recommendation | ? + +-------- --------+ + -----+| <0.25 ?| Bacterial ? ? ?| Strongly ? ? ?| ? | ?| infection very | discouraged ? | Overruling: ? | ?| unlikely ? ? ? | ? | ? Clinically unstable ? ? ? + +-------- --------+ + ? High risk for adverse ? ? | <0.5 or drop | Bacterial ? ? ?| Discouraged ? | ? outcome ? | >80% from ? ?| infection ? ? ?| ? | ? SEE IMPORTANT NOTE ?| highest PCT ?| unlikely ? ? ? | ? | ? | level ?| ?| ? | ? + +-------- --------+ + -----+| >=0.5 ?| Bacterial ? ? ?| Encouraged ? ?| ? | ?| infection ? ? ?| ? | ? | ?| likely ? | ? | Consider treatment failure ?+ +------- ---------+ -+ if levels does not decrease | >1.0 ? | Bacterial ? ? ?| Strongly ? ? ?| appropriately ? | ?| infection very | encouraged ? ?| ? | ?| likely ? | ? | ? + +-------- --------+ + -----+ Percentage of drop of Procalcitonin calculation for Discontinuation of antibiotics in high-acuity patients with suspected or confirmed sepsis in Adults >= 18 years of age. ? Procalcitonin highest{}-Procalcitonin current{}Delta Procalcitonin = x100% ? Procalcitonin current {} IMPORTANT NOTE: Procalcitonin may be elevated without bacterial infection by physiologic stress related to trauma, colvin, chronic dialysis, metastatic cancer, surgery in the past seven days, malaria, some fungal infections, and some forms of vasculitis. The interpretation algorithm may not apply to patients with immunosuppression (equivalent of >10 mg of prednisone daily), HIV with CD4 cell count < 350 cells/mm3, active malignancy on systemic chemotherapy, solid organ transplant or hematopoietic stem cell transplantation, or hospital acquired pneumonia. Additionally, some clinical trials of procalcitonin have excluded patients with shock requiring vasopressor use, acute respiratory failure requiring mechanical ventilation, or those with known lung abscess/empyema. For further information please refer to:[email or web address] Lab Interpretation (test code = 81823-6) [facility] [id number] 03:34:18* Test Item Value Reference Range Interpretation Comme nts FERRITIN (test code = 0253049120) 254.0 ng/mL 11.0-264.0 LEYDI (test code = LEYDI) Biotin has been reported to cause a negative bias, interpret results relative to patient's use of biotin. Lab Interpretation (test code = 96334-0) [facility] CenterGLYCOSYLATED HEMOGLOBIN (A1C)2020-10-02 03:01:37* Test Item Value Reference Range Interpretation Comme nts HGB A1C (test code = 4548-4) 12.2 % 4.0-5.7 H LEYDI (test code = LEYDI) Reference RangesNormal: <5.7%Prediabetes: 5.7 - 6.4%Diabetes: > 6.5% Lab Interpretation (test code = 07480-2) [facility]normal [facility] CenterD-[id number] 02:59:50* Test Item Value Reference Range Interpretation Comments D-DIMER (test code = 8966609043) See_Comment H [Automated message] The system which generated this result transmitted reference range: <0.50 ?g/mL (FEU). The reference range was not used to interpret this result as normal/abnormal. LEYDI (test code = LEYDI) This test may be used in conjunction with a clinical pretest probability (PTP) assessment model to exclude venous thromboembolism (VTE) in patients suspected of deep venous thrombosis (DVT) and pulmonary embolism (PE) A D-Dimer value less than 0.50 ?g/ml (FEU) has a negative predicative value of 96 to 100% (95% CI)and 97 to 100% (95% CI) as an aid in the diagnosis of deep vein thrombosis (DVT) and pulmonary embolism when there is low or moderate pretest probability of PE or DVT. D-Dimer values are expressed in initial fibrinogen equivalent units (FEU)" The assay results should be used with other information, including the clinical context, in forming a diagnosis. Lab Interpretation (test code = 98810-0) [facility]normal [facility] CenterLACTATE [id number] 02:57:08* Test Item Value Reference Range Interpretation Comme nts LDH (test code = 8154483461) 563 U/L 300-600 Lab Interpretation (test cod e = 91642-2) [facility] CenterXR HUMERUS 2 VW [id number] 21:23:51Mildly impacted left humerus surgical neck fracture which isage-indeterminate but favors a more chronic injury. Recommend correlationwith point tenderness and history of prior trauma. Preliminary Report Dictated by Resident: Leslie Moon MD., have reviewed this study and agree with the abovereport.EXAM: XR HUMERUS 2 VW LEFT HISTORY: possible fx COMPARISON: 11/16/2016 CT headScout radiograph FINDINGS: Radiographs of the left humerus demonstrate ?an age-indeterminate fractureof the humerus surgical neck. No additional fracture association suspected.Diffuse demineralization is noted. The joint spaces are maintained. No softtissue abnormality is seen. [facility], Radiant Results Inft User - 10/01/2020 4:25 PM CDTEXAM: XR HUMERUS 2 VW LEFTHISTORY: possible fx COMPARISON: 11/16/2016 CT head Housekeeping Worker radiographFINDINGS:Radiographs of the left humerus demonstrate an age-indeterminate fractureof the humerus surgical neck. No additional fracture association suspected.Diffuse deminer alization is noted. The joint spaces are maintained. No softtissue abnormality is seen. IMPRESSIONMildly impacted left humerus surgical neck fracture which isage-indeterminate but favors a more chronic injury. Recommend correlationwith point tenderness and history of prior trauma.Preliminary ReportDictated by Resident: Leslie Beltran MD., have reviewed this study and agree with the abovereport.[facility]XR [facility]BS 3 [facility]W LEFT 2020-10-01 20:39:51Left 4th and possibly 5th rib fractures. Impacted left humeral head/neck fracture, partially visualized. Correlatewith point tenderness. Preliminary Report Dictated by Resident: Verenice Elliott MD., have reviewed this study and agree with theabove report.EXAM: XR RIBS 3 VW LEFT HISTORY:chest wall pain . Post fall. COMPARISON: None FINDINGS: Radiographs of the left ribs demonstrate a mildly displaced fracture of theleft 4th lateral rib, only seen on the oblique images. A nondisplacedfracture of the left 5th rib is possible. Impacted appearance of the left proximal humerus head/neck with increasedsclerosis, partially visualized. Bilateral pulmonary opacities, better evaluated on same-day chestradiograph. [facility], Radiant Results Inft User - 10/01/2020 3:41 PM CDTEXAM: XRRIBS 3 VW LEFTHISTORY:chest wall pain . Post fall.COMPARISON: NoneFINDINGS: Radiographs of the leftribs demonstrate a mildly displaced fracture of theleft 4th lateral rib, only seen on the oblique images. A nondisplacedfracture of the left 5th rib is possible. Impacted appearance of the left proximal humerus head/neck with increasedsclerosis, partially visualized.Bilateral pulmonary opacities, better evaluated on same-day chestradiograph.IMPRESSIONLeft 4th and possibly 5th rib fractures.Impacted left humeral head/neck fracture, partially visualized. Correlatewith point tenderness.PreliminaryReport Dictated by Resident: Verenice Krause MD., have reviewed this study andagree with theabove report.[facility]XR CHEST 1 [id number] 20:37:48Bilateral interstitial and hazy groundglass opacities compatible withpatient's known Covid-19 pneumo jess. Left fourth rib fracture. Refer to same-day rib series report for betterevaluation. Preliminary Report Dictated by Resident: Verenice Elliott MD., have reviewed this study and agree with theabove report.EXAM: XR CHEST 1 10/01/2020 2:01 PM HISTORY: 69 years-old Female with left chest wall pain COMPARISON: none TECHNIQUE: AP view of the chest. FINDINGS: Decreased lung volumes. Bilateral reticulonodular interstitial opacitieswith a mid/lower lung predominance, nonspecific. More confluent-appearinghazy opacities in the left lower lobe suggestive of atelectasis. Mildincreased interstitial marking likely related to sentinel changes. No focalconsolidation, sizable pleur al effusion or pneumothorax. Normal heart size. Calcifications of the aortic knob. Mildly displacedleft lateral fourth rib fracture.. [facility], Radiant Results Inft User - 10/01/2020 3:38 PM CDTEXAM: XRCHEST 1 10/01/2020 2:01 PMHISTORY: 69 years-old Female with left chest wall pain COMPARISON: noneTECHNIQUE: AP view of the chest.FINDINGS:Decreased lung volumes. Bilateral reticulonodular interstitial opacitieswith a mid/lower lung predominance, nonspecific. More confluent-appearinghazy opacitiesin the left lower lobe suggestive of atelectasis. Mildincreased interstitial marking likely relatedto sentinel changes. No focalconsolidation, sizable pleural effusion or pneumothorax.Normal heart size. Calcifications of the aortic knob.Mildly displaced left lateral fourth rib fracture..IMPRESSIONBilateral interstitial and hazy groundglass opacities compatible withpatient's known Covid-19 pneumonia. Left fourth rib fracture. Refer to same-day rib series report for betterevaluation.Preliminary R eport Dictated by Resident: Verenice Krause MD., have reviewed this study and agree with theabove report.[facility] CenterURINALYSIS2021-04-26 20:11:19* Test Item Value Reference Range Interpretation Comme nts APPEARANCE (test code = 1437783096) Cloudy Clear A COLOR (test code = 0430959647) Marni Yellow A PH (test code = 9212048468) 4.8-8.0 SP GRAVITY (test code = 5976559982) 1.003-1.030 GLU U QUAL (test code = 2451333563) 500 mg/dL Normal A BLOOD (test code = 1419090952) Negative Negative KETONES (test code = 8821151642) 5 mg/dL Negative A PROTEIN (test code = 2887-8) 100 mg/dL Negative A UROBILIN (test code = 0309949003) 2.0 mg/dL Normal A BILIRUBIN (test code = 8628818796) Negative Negative NITRITE (test code = 5845188344) Positive Negative A LEUK TALAT (test code = 3049743724) 75/uL Negative A RBC/HPF (test code = 9224477657) See_Comment H [Automated messa ge] The system which generated this result transmitted reference range: 0 - 3 HPF. The reference range was not used to interpret this result as normal/abnormal. WBC/HPF (test code = 0518174748) See_Comment H [Automated messa ge] The system which generated this result transmitted reference range: 0 - 5 HPF. The reference range was not used to interpret this result as normal/abnormal. BACTERIA (test code = 9768392128) Many Negative A MUCOUS (test code = 0229667807) Moderate Negative LPF A SQ EPITH (test code = 4834815410) HPF YEAST BUD (test code = 5613253829) See_Comment H [Automated messa ge] The system which generated this result transmitted reference range: <=1 HPF. The reference range was not used to interpret this result as normal/abnormal. Lab Interpretation (test code = 28557-2) Abnormal [facility] Metabolic Panel (NA, K, CL, CO2, GLUCOSE, BUN, CREATININE, CA)2020-10-01 20:06:51* Test Item Value Reference Range Interpretation Comme nts NA (test code = 7422381947) 131 mmol/L 135-145 L K (test code = 3905561812) 4.0 mmol/L 3.5-5.0 CL (test code = 1611558398) 91 mmol/L 98-108 L CO2 TOTAL (test code = 2836454367) 34 mmol/L 23-31 H AGAP (test code = 7877686918) 2-16 BUN (test code = 2702283644) 18 mg/dL 7-23 GLUCOSE (test code = 9234284790) 380 mg/dL 70-110 H CREATININE (test code = 0875990434) 0.57 mg/dL 0.50-1.04 CALCIUM (test code = 1790862904) 9.2 mg/dL 8.6-10.6 eGFR (test code = 9981734258) mL/min/1.73m2 LEYDI (test code = LEYDI) Association of Glomerular Filtration Rate (GFR) and Staging of Kidney Disease* + --+ --+ ------+| GFR (mL/min/1.73 m2) ?| With Kidney Damage ?| ?Without Kidney Damage+ --------+ --------+ +| ?>90 ?| ?Stage one ?| ? Normal ?+ ---+ ---+ -------+| ?60-89 ?| ?Stage two ?| ? Decreased GFR ? + --+ --+ ------+| ?30-59 ?| ?Stage three ?| ? Stage three ? + --+ --+ ------+| ?15-29 ?| ?Stage four ? | ? Stage four ?+ ---+ ---+ -------+| ?<15 (or dialysis) ? ?| ?Stage five ? | ? Stage five ?+ ---+ ---+ -------+ *Each stage assumes the associated GFR level has been in effect for at least three months. ?Stages 1 to 5, with or without kidney disease, indicate chronic kidney disease. Notes: Determination of stages one and two (with eGFR >59mL/min/1.73 m2) requires estimation of kidney damage for at least three months as defined by structural or functional abnormalities of the kidney, manifested by either:Pathological abnormalities or Markers of kidney damage (including abnormalities in the composition of the blood or urine or abnormalities in imaging tests). Lab Interpretation (test code = 26405-1) [facility]normal [facility] CenterMihir [id number] 19:40:25* Test Item Value Reference Range Interpretation Comme nts TROPONIN I (test code = 0043243361) 0.003 ng/mL See_Comment [Automated message] The system which generated this result transmitted reference range: <=0.034. The reference range was not used to interpret this result as normal/abnormal. LEYDI (test code = LEYDI) Equal or Less than 0.034 ng/ml---Normal ?Note: Cardiac troponin begins to rise 3-4 hours after the onset of ischemia. Repeat in 4-6 hours if the sample was drawn within 3-4 hours of the onset of the symptom and found normal. Between 0.035 and 0.120 ng/mL--- Borderline. Questionable myocardial injury or necrosis ? ?Note: Serial measurement may be necessary to confirm or exclude the diagnosis of myocardial injury or necrosis; Clinical correlation (symptoms, EKGs, imaging studies, and others) required; Repeat in 4-6 hours if clinically indicated. ? Equal or Higher than 0.121 ng/mL---Abnormal. Myocardial Injury or Necrosis Likely ? Biotin has been reported to cause a negative bias, interpret results relative to patient's use of biotin. ? Lab Interpretation (test code = 49953-6) Normal [facility] CenterHep[facility] Function Panel (ALB, T.PRO, BILI T, BU/BC, ALT, AST, ALK PHOS)2020-10-01 19:30:03* Test Item Value Reference Range Interpretation Comme nts TOTAL BILI (test code = 0772586959) 0.6 mg/dL 0.1-1.1 BILI UNCON (test code = 7124197190) 0.4 mg/dL 0.1-1.1 BILI CONJ (test code = 4413057314) 0.0 mg/dL 0.0-0.3 T PROTEIN (test code = 6421828239) 8.3 g/dL 6.3-8.2 H ALBUMIN (test code = 9480835208) 4.1 g/dL 3.5-5.0 ALK PHOS (test code = 4708054276) 114 U/L 34-122 ALTv (test code = 1742-6) 12 U/L 5-35 AST(SGOT) (test code = 6317797853) 21 U/L 13-40 Lab Interpretation (test cod e = 67903-9) [facility]normal [facility] CenterLipase [id number] 19:29:43* Test Item Value Reference Range Interpretation Comme [facility] LIPASE (test code = 1533534338) 61 U/L 0-220 Lab Interpretation (test cod e = 90517-5) [facility] CenteraPTT2021-04-26 19:25:43* Test Item Value Reference Range Interpretation Comme [facility] APTT Patient (test code = 3173-2) See_Comment [Automated message] The system which generated this result transmitted reference range: 23 - 38 Seconds. The reference range was not used to interpret this result as normal/abnormal. LEYDI (test code = LEYDI) The [facility] patient population mean normal value for aPTT is 30 seconds. Lab Interpretation (test code = 62082-8) Normal [facility] CenterProthrombin Time (PT) / [id number] 19:22:59 * Test Item Value Reference Range Interpretation Comme [facility] PROTIME PATIENT (test code = 5964-2) See_Comment [Automated messa ge] The system which generated this result transmitted reference range: 12.0 - 14.7 Seconds. The reference range was not used to interpret this result as normal/abnormal. INR (test code = 6301-6) Normal INR <1.1; Warfarin Therapeutic range 2.0 to 3.0 or 2.5 to 3.5, depending upon the indications. Lab Interpretation (test code = 57955-5) Normal [facility] CenterCOVID-19 (ID NOW RAPID TESTING)2020-10-01 19:19:41* Test Item Value Reference Range Interpretation Comme [facility] SARS-CoV-2 Rapid ID NOW (test code = 56042-7) Positive Not Detected A LEYDI (test code = LEYDI) ID NOW COVID-19 As say is an isothermal nucleic acid amplification test intended for the qualitative detection of nucleic acid from SARS-CoV-2 viral RNA in nasopharyngeal ([facility]) specimens. It is used under Emergency Use Authorization (EUA) by FDA. The limit of detection (LOD) of the assay is 125 Genome Equivalents/mL. A positive result is indicative of the presence of SARS-CoV-2 RNA. ?Clinical correlation with patient history and other diagnostic information is necessary to determine patient infection status. A negative (Not Detected) result does not preclude SARS-CoV-2 infection. In patients with clinical symptoms and other tests that are consistent with SARS-CoV-2 infection, negative results should be treated as presumptive negative and a new specimen should be tested with alternative PCR molecular test. Invalid: Please collect a new specimen for repeat patient testing if clinically indicated. Lab Interpretation (test code = 28419-1) Abnormal [facility] with [id number] 19:18:40* Test Item Value Reference Range Interpretation Comme nts WBC (test code = 6690-2) See_Comment [Automated [employer]] The system which generated this result transmitted reference range: 4.30 - 11.10 10*3/?L. The reference range was not used to interpret this result as normal/abnormal. RBC (test code = 789-8) See_Comment [Automated [employer]] The system which generated this result transmitted reference range: 3.93 - 5.25 10*6/?L. The reference range was not used to interpret this result as normal/abnormal. HGB (test code = 718-7) 13.0 g/dL 11.6-15.0 HCT (test code = 4544-3) 38.3 % 35.7-45.2 MCV (test code = 787-2) 86.3 fL 80.6-95.5 MCH (test code = 785-6) 29.3 pg 25.9-32.8 MCHC (test code = 786-4) 33.9 g/dL 31.6-35.1 RDW-SD (test code = 70986-2) 40.8 fL 39.0-49.9 RDW-CV (test code = 788-0) 13.2 % 12.0-15.5 PLT (test code = 777-3) See_Comment H [Automated [employer]] The system which generated this result transmitted reference range: 166 - 358 10*3/?L. The reference range was not used to interpret this result as normal/abnormal. MPV (test code = 33576-2) 10.7 fL 9.5-12.9 NRBC/100 WBC (test code = 9923990299) See_Comment [Automated me ssage] The system which generated this result transmitted reference range: 0.0 - 10.0 /100 WBCs. The reference range was not used to interpret this result as normal/abnormal. NRBC x10^3 (test code = 6793067307) <0.01 See_Comment [Automated messa ge] The system which generated this result transmitted reference range: 10*3/?L. The reference range was not used to interpret this result as normal/abnormal. GRAN MAT (NEUT) % (test code = 770-8) 75.9 % IMM GRAN % (test code = 6793100993) 0.40 % LYMPH % (test code = 736-9) 14.3 % MONO % (test code = 5905-5) 7.4 % EOS % (test code = 713-8) 1.3 % BASO % (test code = 706-2) 0.7 % GRAN MAT x10^3(ANC) (test code = 9551924980) 6.84 10*3/uL 1.88-7.09 IMM GRAN x10^3 (test code = 9510446374) 0.04 10*3/uL 0.00-0.06 LYMPH x10^3 (test code = 731-0) 1.29 10*3/uL 1.32-3.29 L MONO x10^3 (test code = 742-7) 0.67 10*3/uL 0.33-0.92 EOS x10^3 (test code = 711-2) 0.12 10*3/uL 0.03-0.39 BASO x10^3 (test code = 704-7) 0.06 10*3/uL 0.01-0.07 Lab Interpretation (test code = 08915-3) [facility]normal [facility] CenterLactic Acid Whole [id number] 19:07:03* Test Item Value Reference Range Interpretation Comme nts LACTIC ACID (test code = 5416090588) 1.46 mmol/L 0.50-2.20 Lab Interpretation (test cod e = 68017-5) [facility]
--- NOTE | 2023-09-24 15:24 | RAD REPORT ---
EXAM DESCRIPTION: RAD - Chest Single View - 09/24/2023 3:14 pm CLINICAL HISTORY: DYSPNEA COMPARISON: Chest Pa And Lat (2 Views) dated 10/22/2018; Chest Single View dated 11/24/2016; CHEST SIN GLE VIEW dated 07/13/2015; CHEST SINGLE VIEW dated 01/28/2009 FINDINGS: Lines: None. Lungs: Decreased lung volumes with increasing irregular airspace disease in lung bases. Pleural: No significant pleural effusions or pneumothorax. Cardiac: The heart size is within normal limits. Mediastinum: Within normal limits. Bones: No acute fractures. Other: None IMPRESSION: Worsening irregular airspace disease in lung bases concerning for pneumonia.
[2023-09-24] MEDS ORDERED: ALBUTEROL 2.5 MG/3 ML NEB SOL ONE ×2 (15:37→17:19)
[2023-09-24] MEDS ORDERED: AZITHROMYCIN 500 MG INJ IVPB ONE (15:37)
[2023-09-24] MEDS ORDERED: IPRATROPIUM BROM 0.5MG/2.5ML ONE ×2 (15:37→17:19)
[2023-09-24] MEDS ORDERED: CEFTRIAXONE 1000 MG/VIAL ONE (15:37)
[2023-09-24] MEDS ORDERED: NA CHLORIDE 0.9% 250 ML ONE (15:38)
[2023-09-24 15:46] LABS: Absolute Basophils 0.1 K/uL (0-0.5); Absolute Eosinophils 0.3 K/uL (0-0.5); Absolute Lymphocytes (CBC) 0.7 K/uL (0.7-4.9); Absolute Monocytes 0.6 K/uL (0.1-1.3); Absolute Neutrophil 8.4 K/uL (1.8-8.0); Basophils % 0.7 % (0-1.3); Eosinophils % 2.6 % (0-4.4); Hematocrit 30.2 % (36.0-45.0); Hemoglobin 9.8 g/dL (12.0-15.0); Lymphocytes % 6.7 % (15.3-44.8); MCH 28.2 pg (27.0-35.0); MCHC 32.4 g/dL (32.0-36.0); MCV 87.1 fL (80-100); MPV 7.2 fL (7.6-11.3); Monocytes % 6.3 % (3.3-12.3); Neutrophils % 83.7 % (41.7-73.7); Platelets 550 thou/uL (152-406); RBC Red Blood Cell Count 3.47 M/uL (3.86-4.86); Red Cell Distribution Width 14.6 % (12.1-15.2)
[2023-09-24 15:50] LABS: PT Prothrombin Time 13.6 SECONDS (9.5-12.5); Protime INR 1.24
[2023-09-24 16:01] LABS: AST/SGOT 16 U/L (15-37); Albumin 2.3 g/dL (3.4-5.0); Albumin/Globulin Ratio 0.5 (1.1-1.8); Alkaline Phosphatase 111 U/L (45-117); Anion Gap 5.1 mEq/L (5.0-15.0); BUN Blood Urea Nitrogen 22 mg/dL (7-18); Bicarbonate 32 mEq/L (21-32); Bilirubin Direct 0.2 mg/dL (0-0.2); Bilirubin Indirect, Calculated 0.4 mg/dL (0.2-0.8); Bilirubin Total 0.6 mg/dL (0.2-1.0); Glomerular Filtration Rate 74 ml/min (=/>90); Glucose Level 133 mg/dL (74-106); Magnesium 1.9 mg/dL (1.6-2.4); NT PRO-BNP 1520 pg/mL (<125); Potassium 4.1 mEq/L (3.5-5.1); Protein, Total 7.3 g/dL (6.4-8.2); Sodium Level 133 mEq/L (136-145); Troponin High Sensitivity 10.8 pg/mL (<58.9)
[2023-09-24 16:07] LABS: ALT/SGPT < 10 U/L (13-56)
--- NOTE | 2023-09-24 16:21 | EDPHYS ---
Physician Documentation [facility] Name: Leyla Sena Age: 72 yrs Sex: Female : 1950 Arrival Date: 09/24/2023 Time: 14:44 Bed 18 Private MD: ED Physician Colby Martínez HPI: 09/23 15:20 This 72 yrs old Female presents to ER via Wheelchair with complaints of sp3 Whezzing, Low Oxygen Level. 15:20 72-year-old female with history of COPD, hypertension, diabetes, prior CVA, anxiety now sp3 presents to the ED with chief complaint wheezing, shortness of breath and COPD exacerbation. No changes in lifestyle reported including travel or sick contacts. She denies headache, fever, chest pain, abdominal pain, back pain, vomiting, diarrhea, syncope, near syncope, focal neurological deficit, or any other signs or symptoms on ROS at this time.. Historical: - Allergies: 15:00 No Known Allergies; aa5 - PMHx: 15:00 CVA; Diabetes mellitus; Hypertensive disorder; Anxiety; Asthma; neck abscess; aa5 - Immunization history:: Adult Immunizations up to date. - Infectious Disease History:: Denies. - Social history:: Smoking status: Patient denies any tobacco usage or history of. ROS: 15:21 Constitutional: Negative for fever, chills, and weight loss, Eyes: Negative for injury, sp3 pain, redness, and discharge, ENT: Negative for injury, pain, and discharge, Neck: Negative for injury, pain, and swelling, Cardiovascular: Negative for chest pain, palpitations, and edema, Abdomen/GI: Negative for abdominal pain, nausea, vomiting, diarrhea, and constipation, Back: Negative for injury and pain, MS/Extremity: Negative for injury and deformity, Skin: Negative for injury, rash, and discoloration, Neuro: Negative for headache, weakness, numbness, tingling, and seizure, Psych: Negative for depression, anxiety, suicide ideation, homicidal ideation, and hallucinations, Allergy/Immunology: Negative for hives, rash, and allergies, Endocrine: Negative for neck swelling, polydipsia, polyuria, polyphagia, and marked weight changes, 15:21 All other systems are negative, Exam: 15:21 Constitutional: This is a well developed, well nourished patient who is awake, alert, sp3 and in no acute distress. Head/Face: Normocephalic, atraumatic. Eyes: Pupils equal round and reactive to light, extra-ocular motions intact. Lids and lashes normal. Conjunctiva and sclera are non-icteric and not injected. Cornea within normal limits. Periorbital areas with no swelling, redness, or edema. ENT: Nares patent. No nasal discharge, no septal abnormalities noted. External auditory canals are clear. Oropharynx with no redness, swelling, or masses, exudates, or evidence of obstruction, uvula midline. Mucous membranes moist. Neck: Trachea midline, no thyromegaly or masses palpated, and no cervical lymphadenopathy. Supple, full range of motion without nuchal rigidity, or vertebral point tenderness. No Meningismus. Chest/axilla: Normal chest wall appearance and motion. Nontender with no deformity. No lesions are appreciated. Cardiovascular: Regular rate and rhythm with a normal S1 and S2. No gallops, murmurs, or rubs. Normal PMI, no JVD. No pulse deficits. Abdomen/GI: Soft, non-tender, with normal bowel sounds. No distension or tympany. No guarding or rebound. No evidence of tenderness throughout. Back: No spinal tenderness. No costovertebral tenderness. Full range of motion. Skin: Warm, dry with normal turgor. Normal color with no rashes, no lesions, and no evidence of cellulitis. MS/ Extremity: Pulses equal, no cyanosis. Neurovascular intact. Full, normal range of motion. Neuro: Awake and alert, GCS 15, oriented to person, place, time, and situation. Cranial nerves II-XII grossly intact. Motor strength 5/5 in all extremities. Sensory grossly intact. Cerebellar exam normal. Normal gait. Psych: Awake, alert, with orientation to person, place and time. Behavior, mood, and affect are within normal limits. 15:21 Respiratory: Respiratory respiratory wheezing noted bilaterally. Active cough., 16:04 ECG was reviewed by the Attending Physician. EKG demonstrates normal sinus rhythm at 79 sp3 bpm with normal intervals, normal axis, normal QRS, nonspecific diffuse ST's ST changes without evidence of acute ischemia. Vital Signs: 14:59 BP 142 / 73; Pulse 83; Resp 33 S; Temp 98(O); Pulse Ox 74% on R/A; Weight 55.79 kg (R); aa5 Height 5 ft. 0 in. (R); 15:01 Pulse Ox 97% on 3 lpm NC; aa5 16:00 BP 128 / 63; Pulse 83; Resp 23; Pulse Ox 100% ; bp 17:15 BP 138 / 72; Pulse 77; Resp 23; Pulse Ox 100% ; bp 18:28 BP 129 / 79; Pulse 81; Resp 20; Pulse Ox 100% ; bp 14:59 Body Mass Index 24.02 (55.79 kg, 152.4 cm) aa5 MDM: 15:07 Patient medically screened. sp3 15:22 Data reviewed: vital signs, nurses notes, old medical records, lab test result(s), EKG, sp3 radiologic studies. ED course: 72-year-old female with a history of COPD amongst other things now presents to the ED with wheezing and shortness of breath. Differential diagnosis includes COPD exacerbation, bronchitis, pneumonia, ACS spectrum, among others. I am not highly suspicious for any other critical pathway including sepsis, shock or neurological insult.. 09/23 15:03 Order name: Basic Metabolic Panel; Complete Time: 16:12 sp3 09/23 15:03 Order name: CBC with Diff; Complete Time: 16:12 sp3 09/23 15:03 Order name: LFT's; Complete Time: 16:12 sp3 09/23 15:03 Order name: Magnesium; Complete Time: 16:12 sp3 09/23 15:03 Order name: NT PRO-BNP; Complete Time: 16:12 sp3 09/23 15:03 Order name: PT-INR; Complete Time: 16:12 sp3 09/23 15:03 Order name: Troponin HS; Complete Time: 16:12 sp3 09/23 16:50 Order name: Urinalysis w/ reflexes EDMS 09/23 16:50 Order name: Basic Metabolic Panel EDMS 09/23 16:50 Order name: Basic Metabolic Panel EDMS 09/23 16:50 Order name: Basic Metabolic Panel EDMS 09/23 16:50 Order name: Basic Metabolic Panel EDMS 09/23 16:50 Order name: Basic Metabolic Panel EDMS 09/23 16:50 Order name: Basic Metabolic Panel EDMS 09/23 16:50 Order name: CBC with Automated Diff EDMS 09/23 16:50 Order name: CBC with Automated Diff EDMS 09/23 16:50 Order name: CBC with Automated Diff EDMS 09/23 16:50 Order name: CBC with Automated Diff EDMS 09/23 16:50 Order name: CBC with Automated Diff EDMS 09/23 16:50 Order name: Magnesium EDMS 09/23 16:50 Order name: Magnesium EDMS 09/23 16:50 Order name: Magnesium EDMS 09/23 16:50 Order name: Magnesium EDMS 09/23 16:50 Order name: Magnesium EDMS 09/23 16:50 Order name: Magnesium EDMS 09/23 16:50 Order name: NT PRO-BNP EDMS 09/23 16:50 Order name: NT PRO-BNP EDMS 09/23 16:50 Order name: NT PRO-BNP EDMS 09/23 16:50 Order name: NT PRO-BNP EDMS 09/23 16:50 Order name: NT PRO-BNP EDMS 09/23 15:03 Order name: XRAY Chest (1 view); Complete Time: 15:25 sp3 09/23 16:33 Order name: Chest For Pe Angio; Complete Time: 17:25 EDMS 09/23 15:03 Order name: EKG; Complete Time: 15:04 sp3 09/23 15:03 Order name: Cardiac monitoring; Complete Time: 15:08 sp3 09/23 15:03 Order name: EKG - Nurse/Tech; Complete Time: 15:28 sp3 09/23 15:03 Order name: IV Saline Lock; Complete Time: 15:28 sp3 09/23 15:03 Order name: Labs collected and sent; Complete Time: 15:28 sp3 09/23 15:03 Order name: O2 Per Protocol; Complete Time: 15:08 sp3 09/23 15:03 Order name: O2 Sat Monitoring; Complete Time: 15:08 sp3 Administered Medications: 15:30 Drug: DuoNeb Nebulize (3:1) (2.5 mg - 0.5 mg) 3 ml Nebulizer once Route: Nebulizer; bp 17:35 Follow up: Response: No adverse reaction bp 15:30 Drug: Rocephin IV 1 grams IV at calculated rate once; Given slow IV push per pharmacy bp instructions Route: IV; Rate: calculated rate; Site: right antecubital; 17:47 Follow up: IV Status: Completed infusion; IV Intake: 100ml bp 15:30 Drug: Zithromax IVPB 500 mg IVPB once over 1 hrs; mix in 250 mL NS Route: IVPB; Infused bp Over: 1 hrs; Site: right antecubital; 17:47 Follow up: IV Status: Completed infusion; IV Intake: 250ml bp 16:30 Drug: DuoNeb Nebulize (3:1) (2.5 mg - 0.5 mg) 3 ml Nebulizer once Route: Nebulizer; bp 17:35 Follow up: Response: No adverse reaction bp Disposition Summary: 09/24/23 16:21 Hospitalization Ordered Notes: Hospitalization Status: Inpatient Admission sp3 Provider: Patricia Lantigua sp3 Location: Telemetry/MedSurg (Inpatient) sp3 Condition: Stable sp3 Problem: an acute exacerbation sp3 Symptoms: have worsened sp3 Bed/Room Type: Standard sp3 Room Assignment: 406(09/24/23 17:09) bd Diagnosis - COPD exacerbation, pneumonia, respiratory distress sp3 Forms: - Medication Reconciliation Form sp3 - SBAR form sp3 - Leadership Thank You Letter sp3 Signatures: Dispatcher [employer] EDMS Lien Frye Audri RN RN aa5 Tom Rodriguez RN RN bp Colby Martínez MD MD sp3 Corrections: (The following items were deleted from the chart) 17:09 16:21 sp3 bd
--- NOTE | 2023-09-24 16:21 | ER ---
Nurse's Notes [facility] Name: Leyla Sena Age: 72 yrs Sex: Female : 1950 Arrival Date: 09/24/2023 Time: 14:44 Bed 18 Private MD: Diagnosis: COPD exacerbation, pneumonia, respiratory distress Presentation: 09/23 14:59 Chief complaint: Patient states: "my oxygen is low". Audible wheezing and SOB noted. aa5 14:59 Coronavirus screen: shortness of breath. Ebola Screen: Patient denies travel to an [facility] Ebola-affected area in the 21 days before illness onset. Initial Sepsis Screen: Does the patient meet any 2 criteria? No. Patient's initial sepsis screen is negative. Does the patient have a suspected source of infection? No. Patient's initial sepsis screen is negative. Risk Assessment: Do you want to hurt yourself or someone else? Patient reports no desire to harm self or others. Onset of symptoms was September 24, 2023. 14:59 Acuity: DIETER 2 aa5 14:59 Method Of Arrival: Wheelchair aa5 Triage Assessment: 15:00 General: Appears distressed, Behavior is calm, cooperative, appropriate for age. Pain: bp Denies pain. Respiratory: Reports shortness of breath. Historical: - Allergies: 15:00 No Known Allergies; aa5 - PMHx: 15:00 CVA; Diabetes mellitus; Hypertensive disorder; Anxiety; Asthma; neck abscess; aa5 - Immunization history:: Adult Immunizations up to date. - Infectious Disease History:: Denies. - Social history:: Smoking status: Patient denies any tobacco usage or history of. Screenin:00 [facility] ED Fall Risk Assessment (Adult) History of falling in the last 3 months, bp including since admission No falls in past 3 months (0 pts). Abuse screen: Denies threats or abuse. Denies injuries from another. Nutritional screening: No deficits noted. Tuberculosis screening: No symptoms or risk factors identified. Assessment: 15:00 General: SEE TRIAGE NOTE. bp 16:00 Reassessment: No changes from previously documented assessment. Patient is alert, bp oriented x 3, equal unlabored respirations, skin warm/dry/pink. 17:15 Reassessment: REPORT FAXED FOR RM 406. bp 17:20 Reassessment: ATTEMPTED TO CALL TO NOTIFY OF FAX REPORT, NO ANSWER. bp 17:40 Reassessment: ATTEMPTED TO CALL TO NOTIFY OF FAX REPORT, NO ANSWER. bp 17:45 Reassessment: MAI CLANCY CONTACTED ON 4TH, PT SANTY WITH TRANSPORT. bp 18:28 Reassessment: PT SANTY. bp Vital Signs: 14:59 BP 142 / 73; Pulse 83; Resp 33 S; Temp 98(O); Pulse Ox 74% on R/A; Weight 55.79 kg (R); aa5 Height 5 ft. 0 in. (R); 15:01 Pulse Ox 97% on 3 lpm NC; aa5 16:00 BP 128 / 63; Pulse 83; Resp 23; Pulse Ox 100% ; bp 17:15 BP 138 / 72; Pulse 77; Resp 23; Pulse Ox 100% ; bp 18:28 BP 129 / 79; Pulse 81; Resp 20; Pulse Ox 100% ; bp 14:59 Body Mass Index 24.02 (55.79 kg, 152.4 cm) aa5 ED Course: 14:51 Patient arrived in ED. mg5 14:59 Arm band placed on Patient placed in an exam room, on a stretcher. aa5 15:03 Colby Martínez MD is Attending Physician. sp3 15:07 Tom Rodriguez, ASTON is Primary Nurse. bp 15:08 XRAY Chest (1 view) Sent. bp 15:10 Triage completed. aa5 15:16 XRAY Chest (1 view) In Process Unspecified. EDMS 15:28 Basic Metabolic Panel Sent. bp 15:28 CBC with Diff Sent. bp 15:28 LFT's Sent. bp 15:28 Magnesium Sent. bp 15:28 NT PRO-BNP Sent. bp 15:28 PT-INR Sent. bp 15:28 Troponin HS Sent. bp 15:28 Inserted saline lock: 22 gauge in right antecubital area, using aseptic technique. bp Blood collected. 15:48 Basic Metabolic Panel Sent. bp 15:48 CBC with Diff Sent. bp 15:48 LFT's Sent. bp 15:48 Magnesium Sent. bp 15:48 NT PRO-BNP Sent. bp 15:48 PT-INR Sent. bp 15:48 Troponin HS Sent. bp 16:00 Patient has correct armband on for positive identification. bp 16:20 Patricia Lantigua MD is Hospitalizing Provider. sp3 16:54 Chest For Pe Angio In Process Unspecified. EDMS 17:45 Provided Education on: N/A. bp 17:45 No provider procedures requiring assistance completed. Patient admitted, IV remains in bp place. Administered Medications: 15:30 Drug: DuoNeb Nebulize (3:1) (2.5 mg - 0.5 mg) 3 ml Nebulizer once Route: Nebulizer; bp 17:35 Follow up: Response: No adverse reaction bp 15:30 Drug: Rocephin IV 1 grams IV at calculated rate once; Given slow IV push per pharmacy bp instructions Route: IV; Rate: calculated rate; Site: right antecubital; 17:47 Follow up: IV Status: Completed infusion; IV Intake: 100ml bp 15:30 Drug: Zithromax IVPB 500 mg IVPB once over 1 hrs; mix in 250 mL NS Route: IVPB; Infused bp Over: 1 hrs; Site: right antecubital; 17:47 Follow up: IV Status: Completed infusion; IV Intake: 250ml bp 16:30 Drug: DuoNeb Nebulize (3:1) (2.5 mg - 0.5 mg) 3 ml Nebulizer once Route: Nebulizer; bp 17:35 Follow up: Response: No adverse reaction bp Medication: 16:00 VIS not applicable for this client. bp Intake: 17:47 IV: 250ml; Total: 250ml. bp 17:47 IV: 100ml; Total: 350ml. bp Outcome: 16:21 Decision to Hospitalize by Provider. sp3 17:45 Admitted to Med/surg accompanied by tech, family with patient, via wheelchair, room bp 406, with chart, Report called to FAX 17:45 Condition: stable 17:45 Instructed on the need for admit, 18:28 Patient left the ED. aa5 Signatures: Dispatcher [employer] EDMS Mirta Melendez RN RN aa5 Tom Rodriguez RN RN bp Colby Martínez MD MD sp3 Sarah Chung mg5
[2023-09-24] MEDS ORDERED: ACETAMINOPHEN 500 MG TAB PO PRN (16:44)
[2023-09-24] MEDS ORDERED: ALBUTEROL 2.5 MG/3 ML NEB SOL NEB PRN (16:44)
[2023-09-24] MEDS ORDERED: ONDANSETRON 4 MG/2 ML VIAL IV PRN (16:44)
[2023-09-24] MEDS ORDERED: IPRATROPIUM BROM 0.5MG/2.5ML NEB PRN (16:44)
--- NOTE | 2023-09-24 16:50 | P.HP ---
Certification for Inpatient Patient admitted to: Inpatient With expected LOS: <2 Midnights <Tami Lerner - Last Filed: 09/24/23 17:37> Patient History Date of Service: 09/24/23 Reason for admission: COPD exacerbation History of Present Illness: s 72 yrs old Female with past medical COPD, former smoker, CVA; Diabetes mellitus; Hypertensive disorder; Anxiety; Asthma; neck abscess; presents to the emergency room with wheezing, shortness of breath. She reports shortness of breath greater than 1 week, she reports inspiratory expiratory wheezing. She reports has home O2 but has not used recently. She reports using nebulizer daily. She reports COPD, former smoker, she reports nonproductive cough, shortness of breath worse with exertion, mild lower extremity edema. She denies history of congestive heart failure, she denies fever, nausea vomiting diarrhea, chest pain. Plan to admit for COPD exacerbation, pneumonia acute hypoxic respiratory failure. She was treated with nebulizers, Rocephin, azithromycin, steroids. Vital signs 9 BP 142 / 73; Pulse 83; Resp 33 S; Temp 98(O); Pulse Ox 74% on R/A; Weight 55.79 kg (R); Height 5 ft. 0 in. s normal sinus rhythm at 79 bpm with normal intervals, normal axis, normal QRS, nonspecific diffuse ST's ST changes without evidence of acute ischemia. CTA of the chest rule out PE MPRESSION: Negative for a pulmonary embolism.Moderate right and moderate left lower lobe alveolar opacities may represent pneumonia or pulmonary edema, chest x-ray IMPRESSION: Worsening irregular airspace disease in lung bases concerning for pneumonia. Laboratory evaluation microcytic anemia 9.8 30.2, no leukocytosis, left shift 83.7, acute kidney injury BUN 22, elevated BNP 1520, troponin normal at 0.8, - Past Medical/Surgical History Diabetic: Yes -: DM -: HTN -: anxiety -: CVA -: asthma -: seizures -: corotid artery stenosis. R endovascular stenting 11/18/16 -: dyslipididemia -: depression -: R wrist sx - Family History Brother -: Heart disease, Hypertension, GI disease, Diabetes - Social History Alcohol use: No CD- Drugs: No Caffeine use: Yes <Tami Lerner - Last Filed: 09/24/23 17:37> Date of Service: 09/24/23 <Patricia Lantigua - Last Filed: 09/28/23 02:22> Allergies No Known Allergies Allergy (Verified 11/25/16 04:49) Home Medications: Fluoxetine HCl [Prozac*] 20 mg PO DAILY 05/17/13 Insulin Detemir [Levemir Flextouch] 10 units SQ DAILY 11/25/16 Clopidogrel Bisulfate [Plavix*] 75 mg PO DAILY 09/25/23 Fluticasone Propionate 2 spray NS DAILY 09/25/23 Levothyroxine [Synthroid*] 50 mcg PO [id number] 09/25/23 Pioglitazone [Actos*] 15 mg PO DAILY 09/25/23 Albuterol Neb [Proventil 0.083% Neb Soln] 2.5 mg NEB [id number] PRN #60 amp 09/26/23 Atorvastatin Calcium [Lipitor] 40 mg PO BEDTIME #30 tab 09/26/23 Cefdinir [Cefdinir*] 300 mg PO BID #14 cap 09/26/23 Furosemide [Lasix*] 20 mg PO DAILY #30 tab 09/26/23 Ipratropium Neb [Atrovent*] 0.5 mg NEB [id number] PRN #60 amp 09/26/23 Potassium Chloride [K-Dur] 10 meq PO M,W,F #15 tab 09/26/23 predniSONE [Deltasone] 20 mg PO BID #20 tab 09/26/23 Review of Systems PER HPI <Tami Lerner - Last Filed: 09/24/23 17:37> Physical Examination - Physical Exam General: Alert, Oriented x3, Mild distress HEENT: Atraumatic, Normocephalic Neck: Supple, 2+ carotid pulse no bruit Respiratory: Expiratory wheezes, Inspiratory wheezes Cardiovascular: Normal pulses, Regular rate/rhythm Capillary refill: <2 Seconds Gastrointestinal: Normal bowel sounds, Soft and benign Musculoskeletal: No clubbing, No swelling Integumentary: No rashes, No breakdown Neurological: Normal speech, Normal strength at 5/5 x4 extr - Studies Laboratory Data (last 24 hrs) 09/24/23 09/24/23 09/24/23 15:27 15:27 15:27 WBC 10.00 Hgb 9.8 L Hct 30.2 L Plt Count 550 H PT 13.6 H INR 1.24 Sodium 133 L Potassium 4.1 BUN 22 H Creatinine 0.84 Glucose 133 H Magnesium 1.9 Total Bilirubin 0.6 AST 16 ALT < 10 L Alkaline Phosphatase 111 <Tami Lerner - Last Filed: 09/24/23 17:37> Assessment and Plan - Plan Assessment plan Acute hypoxic respiratory failure secondary to pneumonia COPD exacerbation Former smoker Asthma exacerbation Dependent on home O2 at bedtime Steroids, DuoNeb nebs, O2 keep sats greater than 92% Azithromycin, ceftriaxone, presents to the emergency room with wheezing, shortness of breath. She reports shortness of breath greater than 1 week, she reports inspiratory expiratory wheezing. She reports has home O2 but has not used recently. She reports using nebulizer daily. She reports COPD, former smoker, she reports nonproductive cough, shortness of breath worse with exertion, mild lower extremity edema. She denies history of congestive heart failure, she denies fever, nausea vomiting diarrhea, chest pain. Plan to admit for COPD exacerbation, pneumonia acute hypoxic respiratory failure. She was treated with nebulizers, Rocephin, azithromycin, steroids. Vital signs 9 BP 142 / 73; Pulse 83; Resp 33 S; Temp 98(O); Pulse Ox 74% on R/A; Weight 55.79 kg (R); Height 5 ft. 0 in. s normal sinus rhythm at 79 bpm with normal intervals, normal axis, normal QRS, nonspecific diffuse ST's ST changes without evidence of acute ischemia. CTA of the chest rule out PE MPRESSION: Negative for a pulmonary embolism.Moderate right and moderate left lower lobe alveolar opacities may represent pneumonia or pulmonary edema, chest x-ray IMPRESSION: Worsening irregular airspace disease in lung bases concerning for pneumonia. Laboratory evaluation microcytic anemia 9.8 30.2, no leukocytosis, left shift 83.7, elevated BNP 1520, troponin normal at 0.8, Acute kidney injury Trend kidney function Avoid nephrotoxic medication BUN 22, Elevated BNP Echo, trend BNP Lasix x 1 CVA Reports history of frequent falls Fall precautions, PT eval Uses rolling walker at home, Insulin-dependent diabetes mellitus Resume home Lantus Sliding scale insulin, Accu-Chek Hypertensive disorder Anxiety Resume home meds, As needed antihypertensives Full code DVT Lovenox Diet cardiac Disposition Home with son, uses home O2, rolling walker, nebulizer at home, uses [facility] for home O2 Discharge Plan: Home - Advance Directives Does patient have a Living Will: No Does patient have a Durable POA for Healthcare: Yes - Code Status/Comfort Care Code Status: Full Code Critical Care: No Time Spent Managing Pts Care (In Minutes): 55 <Tami Lerner - Last Filed: 09/24/23 17:37> Date of Service: 09/24/23 Patient was seen and examined. Events of the last 24 hours have been noted. Spoke with with DANIA regarding patient's clinical picture after evaluating and examining the patient independently. I performed a substantial part of the MDM during this patient's care today. I personally made or approved the documented management plan and acknowledge its risk of complications. I agree with the findings and documentation provided in the DANIA's notes. <Patricia Lantigua - Last Filed: 09/28/23 02:22>
--- NOTE | 2023-09-24 17:21 | RAD REPORT ---
EXAM DESCRIPTION: CT - Chest For Pe Angio - 09/24/2023 4:52 pm CLINICAL HISTORY: Shortness of breath COMPARISON: None. TECHNIQUE: Dynamically enhanced axial 3 mm thick images of the chest were obtained during administra tion of 100 mL Isovue 370 IV contrast. Coronal and oblique reconstruction images were generated and r eviewed. Exam utilizes a protocol for optimal evaluation of pulmonary arterial tree. Maximum intensity projections 3D imaging was utilized All CT scans are performed using dose optimization technique as appropriate and may include automated exposure control or mA/KV adjustment according to patient size. FINDINGS: A pulmonary embolus is not seen. A thoracic aortic aneurysm is not noted. Small bilateral pleural effusions. A pericardial effusion is not seen. Moderate alveolar opacities scattered throughout the right lung. Moderate alveolar opacities left low er lobe IMPRESSION: Negative for a pulmonary embolism. Moderate right and moderate left lower lobe alveolar opacities may represent pneumonia or pulmonary e didier
[2023-09-24] MEDS: METHYLPREDNISOLONE 125 MG INJ IV SCH (18:48)
[2023-09-24] MEDS: INSULIN REGULAR (HUMAN) 100 UNIT/ML SQ SCH (20:26)
[2023-09-24] MEDS: FUROSEMIDE 40 MG/4 ML VIAL IV ONE (20:26)
[2023-09-24] MEDS: INSULIN GLARGINE 100 UNIT/ML SQ SCH (20:26)
--- NOTE | 2023-09-24 21:11 | RAD REPORT ---
EXAM DESCRIPTION: Marta Single View09/24/2023 8:57 pm CLINICAL HISTORY: Chest pain COMPARISON: September 25, 2023 FINDINGS: Moderate diffuse right and moderate left lower lobe alveolar opacities are present. Heart is normal size Small bilateral pleural effusions IMPRESSION: Bilateral pulmonary opacities without significant change from prior CT. This could indic ate aspiration pneumonitis
[2023-09-25 02:37] VITALS: BMI 24.0
[2023-09-25 03:24] LABS: Absolute Lymphocytes (CBC) 0.2 K/uL (0.7-4.9); Absolute Neutrophil 6.1 K/uL (1.8-8.0); Basophils % 0.5 % (0-1.3); Hematocrit 27.8 % (36.0-45.0); Hemoglobin 9.4 g/dL (12.0-15.0); Lymphocytes % 3.1 % (15.3-44.8); MCH 29.5 pg (27.0-35.0); MCHC 33.9 g/dL (32.0-36.0); MPV 7.3 fL (7.6-11.3); Monocytes % 0.6 % (3.3-12.3); Neutrophils % 95.8 % (41.7-73.7); Nucleated Red Blood Cells % 0.1 % (0-0); Platelets 482 thou/uL (152-406); RBC Red Blood Cell Count 3.19 M/uL (3.86-4.86); Red Cell Distribution Width 14.4 % (12.1-15.2)
[2023-09-25 03:44] LABS: Anion Gap 6.3 mEq/L (5.0-15.0); Magnesium 1.9 mg/dL (1.6-2.4); Potassium 4.3 mEq/L (3.5-5.1)
[2023-09-25 05:42] LABS: Phosphorus 3.9 mg/dL (2.5-4.9)
[2023-09-25] MEDS: AZITHROMYCIN IV 500 MG in NA CHLORIDE 0.9% 250 ML IVPB SCH (08:11)
--- NOTE | 2023-09-25 08:36 | P.PN ---
Subjective Date of Service: 09/25/23 Chief Complaint: COPD exacerbation Admitted with a COPD exacerbation, breathing improved with steroids, nebulizers, currently 94% 1 L Elevated BNP, Lasix ordered, echo ordered - Physical Exam General: Alert, In no apparent distress, Oriented x3 HEENT: Atraumatic, PERRLA, Mucous membr. moist/pink, EOMI, Sclerae nonicteric Neck: Supple, 2+ carotid pulse no bruit, No LAD, Without JVD or thyroid abnormality Respiratory: Crackles/rales, Expiratory wheezes (End expiratory wheezing) Cardiovascular: Regular rate/rhythm, Normal S1 S2 Gastrointestinal: Normal bowel sounds, Soft and benign, Non-distended, No tenderness Musculoskeletal: No clubbing, No swelling, No tenderness Integumentary: No rashes Neurological: Normal gait, Normal speech, Normal strength at 5/5 x4 extr, Normal tone, Sensation intact, Cranial nerves 3-12 intact, Normal affect Lymphatics: No axilla or inguinal lymphadenopathy <Tami Lerner - Last Filed: 09/25/23 15:57> Date of Service: 09/25/23 <Patricia Lantigua - Last Filed: 09/28/23 02:25> Review of Systems Per HPI <Tami Lerner - Last Filed: 09/25/23 15:57> Physical Examination - Vital Signs Temperature: 97.4 F Blood Pressure: 93/55 Pulse: 76 Respirations: 16 Pulse Ox (%): 94 - Studies Laboratory Data (last 24 hrs) 09/24/23 09/24/23 09/24/23 15:27 15:27 15:27 WBC 10.00 Hgb 9.8 L Hct 30.2 L Plt Count 550 H PT 13.6 H INR 1.24 Sodium 133 L Potassium 4.1 BUN 22 H Creatinine 0.84 Glucose 133 H Magnesium 1.9 Total Bilirubin 0.6 AST 16 ALT < 10 L Alkaline Phosphatase 111 <Tami Lerner - Last Filed: 09/25/23 15:57> Assessment And Plan - Plan Assessment plan Acute hypoxic respiratory failure secondary to pneumonia improved COPD exacerbation improved Former smoker Asthma exacerbation improved Dependent on home O2 at bedtime Steroids, DuoNeb nebs, O2 keep sats greater than 92% Azithromycin, ceftriaxone, presents to the emergency room with wheezing, shortness of breath. She reports shortness of breath greater than 1 week, she reports inspiratory expiratory wheezing. She reports has home O2 but has not used recently. She reports using nebulizer daily. She reports COPD, former smoker, she reports nonproductive cough, shortness of breath worse with exertion, mild lower extremity edema. She denies history of congestive heart failure, she denies fever, nausea vomiting di arrhea, chest pain. Plan to admit for COPD exacerbation, pneumonia acute hypoxic respiratory failure. She was treated with nebulizers, Rocephin, azithromycin, steroids. Vital signs 9 BP 142 / 73; Pulse 83; Resp 33 S; Temp 98(O); Pulse Ox 74% on R/A; Weight 55.79 kg (R); Height 5 ft. 0 in. s normal sinus rhythm at 79 bpm with normal intervals, normal axis, normal QRS, nonspecific diffuse ST's ST changes without evidence of acute ischemia. CTA of the chest rule out PE MPRESSION: Negative for a pulmonary embolism.Moderate right and moderate left lower lobe alveolar opacities may represent pneumonia or pulmonary edema, chest x-ray IMPRESSION: Worsening irregular airspace disease in lung bases concerning for pneumonia. Laboratory evaluation microcytic anemia 9.8 30.2, no leukocytosis, left shift 83.7, troponin normal at 0.8, CTA of the chest negative for PE Acute kidney injury Trend kidney function Avoid nephrotoxic medication BUN 22, Elevated BNP Echo ordered, trend BNP Lasix twice daily elevated BNP 1520, 2878 CVA Reports history of frequent falls Fall precautions, PT eval Uses rolling walker at home, Insulin-dependent diabetes mellitus Resume home Lantus Sliding scale insulin, Accu-Chek Hypertensive disorder Anxiety Resume home meds, As needed antihypertensives Full code DVT Lovenox Diet cardiac Disposition Home with son, uses home O2, rolling walker, nebulizer at home, uses [facility] for home O2 Discharge Plan: Home - Code Status/Comfort Care Code Status: Full Code Critical Care: No Time Spent Managing PTS Care (In Minutes): 35 <Tami Lerner - Last Filed: 09/25/23 15:57> Date of Service: 09/25/23 Patient was seen and examined. Events of the last 24 hours have been noted. Spoke with with DANIA regarding patient's clinical picture after evaluating and examining the patient independently. I performed a substantial part of the MDM during this patient's care today. I personally made or approved the documented management plan and acknowledge its risk of complications. I agree with the findings and documentation provided in the DANIA's notes. Patient appears to have had an acute COPD exacerbation. Patient was given nebs, steroids, antibiotic. Patient is feeling better. 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 Patient has ataxia. Patient's clinical status has improved and patient is back to baseline according to the family. Anticipate discharge in the morning. <Patricia Lantigua - Last Filed: 09/28/23 02:25>
[2023-09-25] MEDS: FUROSEMIDE 40 MG/4 ML VIAL IV SCH (09:33)
[2023-09-26] MEDS: INSULIN GLARGINE 100 UNIT/ML SQ ONE (01:07)
[2023-09-26] MEDS: ALPRAZOLAM 0.25 MG TABLET PO PRN (01:12)
[2023-09-26 03:35] LABS: Absolute Basophils 0.2 K/uL (0-0.5); Absolute Lymphocytes (CBC) 0.3 K/uL (0.7-4.9); Absolute Monocytes 0.6 K/uL (0.1-1.3); Basophils % 1.4 % (0-1.3); Eosinophils % 0.1 % (0-4.4); Hematocrit 28.7 % (36.0-45.0); Hemoglobin 9.6 g/dL (12.0-15.0); Lymphocytes % 2.6 % (15.3-44.8); MCH 29.1 pg (27.0-35.0); MCHC 33.6 g/dL (32.0-36.0); MCV 86.5 fL (80-100); MPV 7.5 fL (7.6-11.3); Monocytes % 4.8 % (3.3-12.3); Neutrophils % 91.1 % (41.7-73.7); Nucleated Red Blood Cells % 0.1 % (0-0); Platelets 525 thou/uL (152-406); RBC Red Blood Cell Count 3.32 M/uL (3.86-4.86); Red Cell Distribution Width 14.6 % (12.1-15.2)
[2023-09-26 03:52] LABS: Magnesium 1.9 mg/dL (1.6-2.4)
--- NOTE | 2023-09-26 09:37 | P.PN ---
Subjective Date of Service: 09/26/23 Chief Complaint: COPD exacerbation Admitted with a COPD exacerbation, breathing improved with steroids, nebulizers, currently 94% 1 L Elevated BNP, Lasix ordered, echo ordered - Physical Exam General: Alert, In no apparent distress, Oriented x3 HEENT: Atraumatic, PERRLA, Mucous membr. moist/pink, EOMI, Sclerae nonicteric Neck: Supple, 2+ carotid pulse no bruit, No LAD, Without JVD or thyroid abnormality Respiratory: Crackles/rales, Expiratory wheezes (End expiratory wheezing) Cardiovascular: Regular rate/rhythm, Normal S1 S2 Gastrointestinal: Normal bowel sounds, Soft and benign, Non-distended, No tenderness Musculoskeletal: No clubbing, No swelling, No tenderness Integumentary: No rashes Neurological: Normal gait, Normal speech, Normal strength at 5/5 x4 extr, Normal tone, Sensation intact, Cranial nerves 3-12 intact, Normal affect Lymphatics: No axilla or inguinal lymphadenopathy Review of Systems PER HPI Physical Examination - Vital Signs Temperature: 97.5 F Blood Pressure: 117/56 Pulse: 73 Respirations: 18 Pulse Ox (%): 92 Assessment And Plan - Plan Assessment plan Acute hypoxic respiratory failure secondary to pneumonia improved COPD exacerbation improved Former smoker Asthma exacerbation improved Dependent on home O2 at bedtime Steroids, DuoNeb nebs, O2 keep sats greater than 92% Azithromycin, ceftriaxone, presents to the emergency room with wheezing, shortness of breath. She reports shortness of breath greater than 1 week, she reports inspiratory expiratory wheezing. She reports has home O2 but has not used recently. She reports using nebulizer daily. She reports COPD, former smoker, she reports nonproductive cough, shortness of breath worse with exertion, mild lower extremity edema. She denies history of congestive heart failure, she denies fever, nausea vomiting diarrhea, chest pain. Plan to admit for COPD exacerbation, pneumonia acute hypoxic respiratory failure. She was treated with nebulizers, Rocephin, azit hromycin, steroids. Vital signs 9 BP 142 / 73; Pulse 83; Resp 33 S; Temp 98(O); Pulse Ox 74% on R/A; Weight 55.79 kg (R); Height 5 ft. 0 in. s normal sinus rhythm at 79 bpm with normal intervals, normal axis, normal QRS, nonspecific diffuse ST's ST changes without evidence of acute ischemia. CTA of the chest rule out PE MPRESSION: Negative for a pulmonary embolism.Moderate right and moderate left lower lobe alveolar opacities may represent pneumonia or pulmonary edema, chest x-ray IMPRESSION: Worsening irregular airspace disease in lung bases concerning for pneumonia. Laboratory evaluation microcytic anemia 9.8 30.2, no leukocytosis, left shift 83.7, troponin normal at 0.8, CTA of the chest negative for PE FINDINGS: A pulmonary embolus is not seen. A thoracic aortic aneurysm is not noted. Small bilateral pleural effusions. A pericardial effusion is not seen. Moderate alveolar opacities scattered throughout the right lung. Moderate alveolar opacities left lower lobe IMPRESSION: Negative for a pulmonary embolism. Acute kidney injury Trend kidney function Avoid nephrotoxic medication BUN 22, Elevated BNP Echo ordered, trend BNP Lasix twice daily elevated BNP 1520, 2878, 4160 CVA Reports history of frequent falls Fall precautions, PT eval Uses rolling walker at home, Insulin-dependent diabetes mellitus Resume home Lantus Sliding scale insulin, Accu-Chek Hypertensive disorder Anxiety Resume home meds, As needed antihypertensives Full code DVT Lovenox Diet cardiac Disposition Home with son, uses home O2, rolling walker, nebulizer at home, uses [facility] for home O2
[2023-09-26 10:32] VITALS: O2SAT 93
[2023-09-26] MEDS: INSULIN REGULAR (HUMAN) 100 UNIT/ML SQ SCH (11:34)
[2023-09-26] MEDS: CEFTRIAXONE 1,000 MG in NA CHLORIDE 0.9% 50 ML IVPB SCH (11:34)
[2023-09-26 13:11] VITALS: BP 101/49; TEMP 97.3
--- NOTE | 2023-09-27 07:55 | P.DS ---
Admission Date: 09/24/23 Discharge Date: 09/27/23 Reason for Admission: COPD exacerbation Brief History of Present Illness: s 72 yrs old Female with past medical COPD, former smoker, CVA; Diabetes mellitus; Hypertensive disorder; Anxiety; Asthma; neck abscess; presents to the emergency room with wheezing, shortness of breath. She reports shortness of breath greater than 1 week, she reports inspiratory expiratory wheezing. She reports has home O2 but has not used recently. She reports using nebulizer daily. She reports COPD, former smoker, she reports nonproductive cough, shortness of breath worse with exertion, mild lower extremity edema. She denies history of congestive heart failure, she denies fever, nausea vomiting diarrhea, chest pain. Plan to admit for COPD exacerbation, pneumonia acute hypoxic respiratory failure. She was treated with nebulizers, Rocephin, azithromycin, steroids. Vital signs 9 BP 142 / 73; Pulse 83; Resp 33 S; Temp 98(O); Pulse Ox 74% on R/A; Weight 55.79 kg (R); Height 5 ft. 0 in. s normal sinus rhythm at 79 bpm with normal intervals, normal axis, normal QRS, nonspecific diffuse ST's ST changes without evidence of acute ischemia. CTA of the chest rule out PE MPRESSION: Negative for a pulmonary embolism.Moderate right and moderate left lower lobe alveolar opacities may represent pneumonia or pulmonary edema, chest x-ray IMPRESSION: Worsening irregular airspace disease in lung bases concerning for pneumonia. Laboratory evaluation microcytic anemia 9.8 30.2, no leukocytosis, left shift 83.7, acute kidney injury BUN 22, elevated BNP 1520, troponin normal at 0.8, - Physical Exam General: Alert, Oriented x3, Mild distress HEENT: Atraumatic, Normocephalic Neck: Supple, 2+ carotid pulse no bruit Respiratory: Equal unlabored Cardiovascular: Normal pulses, Regular rate/rhythm Capillary refill: <2 Seconds Gastrointestinal: Normal bowel sounds, Soft and benign Musculoskeletal: No clubbing, No swelling Integumentary: No rashes, No breakdown Neurological: Normal speech, Normal strength at 5/5 x4 extr Hospital Course: 72 year-old female patient presented with shortness of breath. Was noted to have COPD exacerbation. Condition improved with IV steroids, nebulizer. Oxygen. Patient tolerating diet, stable for discharge to home with follow-up appointment with primary care physician. PROBLEM: COPD exacerbation Condition improved with IV steroids, nebulizer. Oxygen. Former smoker, patient has home O2 at home Elevated BNP Lasix given Discharged home on cefdinir antibiotics, albuterol neb Continue home medicines as previously prescribed GOAL: Clear understanding of disease process INSTRUCTIONS: Physician Discharge Instructions: -DC IV and DC home -Follow-up with PCP in 1 to 2 weeks -Please call Dr. Lantigua at [phone] if any questions regarding hospital stay -Please call nursing station at [phone] if any nursing or medication questions -Return to the emergency room if symptoms worsen Diet: ADA, low sodium Activity: Fall precautions <Tami Lerner - Last Filed: 09/27/23 07:56> Admission Date: 09/24/23 Discharge Date: 09/26/23 Hospital Course: Patient was admitted for an acute COPD exacerbation. Patient's clinical status has improved. Patient has a history of stroke in patient's clinical status is stable. Patient with no new findings. At this time patient is stable for discharge home. <Patricia Lantigua - Last Filed: 09/28/23 02:25> Disposition: ROUTINE DISCHARGE Discharge Condition: GOOD Vital Signs/Physical Exam: Temp Pulse Resp BP Pulse Ox 97.3 F 71 17 101/49 L 96 09/26/23 12:00 09/26/23 12:00 09/26/23 12:00 09/26/23 12:00 09/26/23 12:00 Laboratory Data at Discharge: WBC 12.10 thou/uL (4.3-10.9) H 09/26/23 02:57 Hgb 9.6 g/dL (12.0-15.0) L 09/26/23 02:57 Hct 28.7 % (36.0-45.0) L 09/26/23 02:57 Plt Count 525 thou/uL (152-406) H 09/26/23 02:57 PT 13.6 SECONDS (9.5-12.5) H 09/24/23 15:27 INR 1.24 09/24/23 15:27 Sodium 133 mEq/L (136-145) L 09/26/23 02:57 Potassium 4.0 mEq/L (3.5-5.1) 09/26/23 02:57 BUN 35 mg/dL (7-18) H 09/26/23 02:57 Creatinine 1.25 mg/dL (0.55-1.02) H 09/26/23 02:57 Glucose 246 mg/dL (74-106) H 09/26/23 02:57 Phosphorus 3.9 mg/dL (2.5-4.9) 09/25/23 03:09 Magnesium 1.9 mg/dL (1.6-2.4) 09/26/23 02:57 Total Bilirubin 0.6 mg/dL (0.2-1.0) 09/24/23 15:27 AST 16 U/L (15-37) 09/24/23 15:27 ALT < 10 U/L (13-56) L 09/24/23 15:27 Alkaline Phosphatase 111 U/L (45-117) 09/24/23 15:27 <Tami Lerner - Last Filed: 09/27/23 07:56> Vital Signs/Physical Exam: Temp Pulse Resp BP Pulse Ox 97.3 F 71 17 101/49 L 96 09/26/23 12:00 09/26/23 12:00 09/26/23 12:00 09/26/23 12:00 09/26/23 12:00 Laboratory Data at Discharge: WBC 12.10 thou/uL (4.3-10.9) H 09/26/23 02:57 Hgb 9.6 g/dL (12.0-15.0) L 09/26/23 02:57 Hct 28.7 % (36.0-45.0) L 09/26/23 02:57 Plt Count 525 thou/uL (152-406) H 09/26/23 02:57 PT 13.6 SECONDS (9.5-12.5) H 09/24/23 15:27 INR 1.24 09/24/23 15:27 Sodium 133 mEq/L (136-145) L 09/26/23 02:57 Potassium 4.0 mEq/L (3.5-5.1) 09/26/23 02:57 BUN 35 mg/dL (7-18) H 09/26/23 02:57 Creatinine 1.25 mg/dL (0.55-1.02) H 09/26/23 02:57 Glucose 246 mg/dL (74-106) H 09/26/23 02:57 Phosphorus 3.9 mg/dL (2.5-4.9) 09/25/23 03:09 Magnesium 1.9 mg/dL (1.6-2.4) 09/26/23 02:57 Total Bilirubin 0.6 mg/dL (0.2-1.0) 09/24/23 15:27 AST 16 U/L (15-37) 09/24/23 15:27 ALT < 10 U/L (13-56) L 09/24/23 15:27 Alkaline Phosphatase 111 U/L (45-117) 09/24/23 15:27 <Patricia Lantigua - Last Filed: 09/28/23 02:25> Diet: Low sodium Activity: Non-weight bearing Time spent managing pt's care (in minutes): 55 <Tami Lerner - Last Filed: 09/27/23 07:56> <Patricia Lantigua - Last Filed: 09/28/23 02:25> Home Medications: Fluoxetine HCl [Prozac*] 20 mg PO DAILY 05/17/13 Insulin Detemir [Levemir Flextouch] 10 units SQ DAILY 11/25/16 Clopidogrel Bisulfate [Plavix*] 75 mg PO DAILY 09/25/23 Fluticasone Propionate 2 spray NS DAILY 09/25/23 Levothyroxine [Synthroid*] 50 mcg PO [id number] 09/25/23 Pioglitazone [Actos*] 15 mg PO DAILY 09/25/23 Albuterol Neb [Proventil 0.083% Neb Soln] 2.5 mg NEB [id number] PRN #60 amp 09/26/23 Atorvastatin Calcium [Lipitor] 40 mg PO BEDTIME #30 tab 09/26/23 Cefdinir [Cefdinir*] 300 mg PO BID #14 cap 09/26/23 Furosemide [Lasix*] 20 mg PO DAILY #30 tab 09/26/23 Ipratropium Neb [Atrovent*] 0.5 mg NEB [id number] PRN #60 amp 09/26/23 Potassium Chloride [K-Dur] 10 meq PO M,W,F #15 tab 09/26/23 predniSONE [Deltasone] 20 mg PO BID #20 tab 09/26/23 New Medications: Ipratropium Neb [Atrovent*] 0.5 mg NEB [id number] PRN #60 amp PRN Reason: Shortness Of Breath Cefdinir [Cefdinir*] 300 mg PO BID #14 cap Potassium Chloride [K-Dur] 10 meq PO M,W,F #15 tab Furosemide [Lasix*] 20 mg PO DAILY #30 tab Atorvastatin Calcium [Lipitor] 40 mg PO BEDTIME #30 tab predniSONE [Deltasone] 20 mg PO BID #20 tab Albuterol Neb [Proventil 0.083% Neb Soln] 2.5 mg NEB [id number] PRN #60 amp PRN Reason: Shortness Of Breath Physician Discharge Instructions: -DC IV and DC home -Follow-up with PCP in 1 to 2 weeks -Follow-up with Cardiology in 1 to 2 weeks -Follow-up with Pulmonary in 1 to 2 weeks -Hold Lasix until September 28, 2023 -Please call Dr. Lantigua at [phone] if any questions regarding hospital stay -Please call nursing station at [phone] if any nursing or medication questions -Return to the emergency room if symptoms worsen Followup: Se Delgado MD [ACTIVE - CAN ADMIT] - GERMÁN DUNLAP [Primary Care Provider] - Edu George MD [ACTIVE - CAN ADMIT] -
--- NOTE | 2023-09-28 07:40 | ECHO ---
HEIGHT: 5 ft 0 in WEIGHT: 123 lb 0 oz DATE OF STUDY: 09/25/[address]: Tami Lerner 2-DIMENSIONAL: YES M.MODE: YES DOPPLER: YES COLOR FLOW: YES TDS: PORTABLE: YES DEFINITY: BUBBLE STUDY: DIAGNOSIS: ELEVATED BNP/ EVALUATE HEART FAILURE CARDIAC HISTORY: CATHERIZATION: SURGERY: PROSTHETIC VALVE: PACEMAKER: MEASUREMENTS (cm) DIASTOLIC (NORMALS) SYSTOLIC (NORMALS) IVSd 0.7 (0.6-1.2) LA Diam 2.9 (1.9-4.0) LVEF 69% LVIDd 4.3 (3.5-5.7) LVIDs 2.6 (2.0-3.5) %FS 38% LVPWd 0.7 (0.6-1.2) Ao Diam 2.4 (2.0-3.7) 2 DIMENSIONAL ASSESSMENT: RIGHT ATRIUM: NORMAL LEFT ATRIUM: NORMAL RIGHT VENTRICLE: NORMAL LEFT VENTRICLE: NORMAL TRICUSPID VALVE: MILD TRICUSPID REGURGITAITON MITRAL VALVE: MILD MITRAL REGURGITATION PULMONIC VALVE: MILD PULMONIC INSUFFIENCY AORTIC VALVE: NORMAL PERICARDIAL EFFUSION: NONE AORTIC ROOT: NORMAL LEFT VENTRICULAR WALL MOTION: NORMAL DOPPLER/COLOR FLOW: SEE BELOW COMMENTS: 1. NORMAL LEFT VENTRICULAR EJECTION FRACTION 60-65% WITH NORMAL WALL MOTION 2. MODERATE DIASTOLIC DYSFUNCTION 3. MILD MITRAL REGURGITATION 4. MILD TRICUSPID REGURGITATION/ PULMONIC INSUFFICIENCY TECHNOLOGIST: DEMI BUSTAMANTE
--- NOTE | 2023-10-01 17:17 | EKG ---
Test Date: 2023-09-24 Test Time: 15:20:20 Us Marketing Director: BP MEASUREMENT RESULTS: Intervals: Rate: 79 ND: 174 QRSD: 82 QT: 412 QTc: 472 Mcclure: P: 56 ND: 174 QRS: 1 T: 24 INTERPRETIVE STATEMENTS: Normal sinus rhythm Possible Inferior infarct, age undetermined Abnormal ECG Compared to ECG 10/22/2018 09:17:21 Myocardial infarct finding now present Electronically Signed On 10-01-23 16:51:08 CDT by Edu George
== END 2023-09-26 14:26 | disposition home or self-care (01) | DRG 193 ==
LOC: ER 14:44 → 4TH 16:43
PROVIDERS: ADMIT Hospitalist; ATTEND Hospitalist
DX: J18.9 Pneumonia, unspecified organism (principal); J96.01 Acute respiratory failure with hypoxia; J44.1 Chronic obstructive pulmonary disease with (acute) exacerbation; E87.1 Hypo-osmolality and hyponatremia; J44.0 Chronic obstructive pulmonary disease with (acute) lower respiratory infection; N17.9 Acute kidney failure, unspecified; J45.901 Unspecified asthma with (acute) exacerbation; I10 Essential (primary) hypertension; E11.9 Type 2 diabetes mellitus without complications; E78.5 Hyperlipidemia, unspecified; F41.9 Anxiety disorder, unspecified; D50.9 Iron deficiency anemia, unspecified; R27.0 Ataxia, unspecified; R29.6 Repeated falls; Z79.4 Long term (current) use of insulin; Z91.81 History of falling; Z99.81 Dependence on supplemental oxygen; Z79.52 Long term (current) use of systemic steroids; Z79.02 Long term (current) use of antithrombotics/antiplatelets; Z86.73 Personal history of transient ischemic attack (TIA), and cerebral infarction without residual deficits; Z79.890 Hormone replacement therapy; Z87.891 Personal history of nicotine dependence; Z79.899 Other long term (current) drug therapy; Z91.199 Patient's noncompliance with other medical treatment and regimen due to unspecified reason
CPT/HCPCS: 36415; 71045; 71275; 80048; 80076; 82947; 83735; 83880; 84100; 84484; 85025; 85610; 92610; 93005; 93306; 94640; 96365; 96366; 96368; 97116; 97161; 97530; 99285; J0696; J1815; J1940; J2919; J7050; J7613; J7644; Q9967